=== PATIENT | female | born 1940 | race Caucasian/White ===

== ENCOUNTER 2019-07-04 04:22 | Inpatient (IN) | payer MEDICARE, OTHER ==
[~2019-07-04] VITALS: Ht 152.4 cm; Wt 95.2 kg
[~2019-07-04 04:22] MED LIST: ASPI325EC PO; LIPITOR; METF500C; METF850; OMEP20ER PO; SERT100; VALS80
[2019-07-04 04:47] LABS: BASOPHILS ABSOLUTE AUTO 0.01 K/mm3 (0.00-0.23); BASOPHILS PERCENT AUTO 0 % (0-2); EOSINOPHILS ABSOLUTE AUTO 0.14 K/mm3 (0.00-0.68); EOSINOPHILS PERCENT AUTO 2 % (0-6); Hemoglobin 11.3 g/dL (11.5-16.0); IMMATURE GRAN ABSOLUTE AUTO 0.03 K/mm3 (0.00-0.10); IMMATURE GRAN PERCENT AUTO 0 % (0-1); LYMPHOCYTES ABSOLUTE AUTO 1.97 K/mm3 (0.84-5.20); LYMPHOCYTES PERCENT AUTO 28 % (21-46); MONOCYTES ABSOLUTE AUTO 0.42 K/mm3 (0.16-1.47); MONOCYTES PERCENT AUTO 6 % (4-13); Mean Corpuscular HGB 28.1 pg (26.0-34.0); Mean Corpuscular HGB Conc 31.4 g/dL (31.5-36.5); Mean Corpuscular Volume 90 fL (80-100); Mean Platelet Volume 9.5 fL (9.1-12.4); NEUTROPHILS ABSOLUTE AUTO 4.53 K/mm3 (1.96-9.15); NEUTROPHILS PERCENT AUTO 64 % (41-73); Platelet Count 189 K/mm3 (150-400); RDW Coefficient Variation 14.5 % (11.7-14.2); RDW Standard Deviation 47.4 fL (35.1-46.3); Red Blood Cell Count 4.02 M/mm3 (3.80-5.20)
[2019-07-04 05:10] LABS: Troponin I <0.015 ng/mL (0.000-0.040)
[2019-07-04 05:11] LABS: Alanine Aminotransfer (ALT/SGP 78 U/L (12-78); Albumin, Blood 2.9 g/dL (3.4-5.0); Albumin/Globulin Ratio 0.8 (0.8-1.8); Alk Phos 499 U/L (50-136); Anion Gap 4 mmol/L (6-16); Aspartate Aminotrans (AST/SGOT 477 U/L (12-37); Bilirubin, Total 1.1 mg/dL (0.1-1.0); Blood Urea Nitrogen 16 mg/dL (8-24); CO2, Blood 30 mmol/L (21-32); Calcium, Blood 8.1 mg/dL (8.5-10.1); Chloride, Blood 108 mmol/L (98-108); Creatinine, Blood 0.84 mg/dL (0.40-1.00); Globulin, Blood 3.6 g/dL (2.2-4.0); Glomerular Filtration Rate >60 (60-); Glucose, Blood 72 mg/dL (70-99); Potassium, Blood 4.1 mmol/L (3.5-5.5); Sodium, Blood 142 mmol/L (136-145); Total Protein, Blood 6.5 g/dL (6.4-8.2)
[2019-07-04] MEDS ORDERED: Zithromax250 MG PO (05:48)
[2019-07-04] MEDS ORDERED: OXYC10TA19 PO (11:38)
[2019-07-04] MEDS ORDERED: BASAGLAR K100 UNIT/1 SC (11:39)
[2019-07-04] MEDS ORDERED: BUPROPION XL150 M1 PO (11:39)
[2019-07-04] MEDS ORDERED: METFORMIN HCL500 M2 PO (11:39)
[2019-07-04] MEDS ORDERED: NEURONTIN300 MG PO (11:40)
[2019-07-04] MEDS ORDERED: MINIPRESS2 M1 PO (11:40)
[2019-07-04] MEDS ORDERED: SYNTHROID100 MCG PO (11:40)
[2019-07-04] MEDS ORDERED: Benazepril HCl20 MG PO (11:40)
[2019-07-04] MEDS ORDERED: OMEP20ER PO (11:41)
[2019-07-04] MEDS ORDERED: Carbidopa-Levo1 EAC4 PO ×2 (11:41)
[2019-07-04] MEDS ORDERED: ATORVASTATIN CA20 MG PO (11:41)
[2019-07-04 11:49] LABS: Adenovirus Not Detected (NOT DETECT); Bordetella pertussis Not Detected (NOT DETECT); Chlamydophila pneumoniae Not Detected (NOT DETECT); Coronavirus 229E Not Detected (NOT DETECT); Coronavirus HKU1 Not Detected (NOT DETECT); Coronavirus NL63 Not Detected (NOT DETECT); Coronavirus OC43 Not Detected (NOT DETECT); Human Metapneumovirus Not Detected (NOT DETECT); Human Rhinovirus/Enterovirus Not Detected (NOT DETECT); Influenza A/2009-H1 Detected (NOT DETECT); Influenza A/H1 Not Detected (NOT DETECT); Influenza A/H3 Not Detected (NOT DETECT); Influenza B Not Detected (NOT DETECT); Mycoplasma pneumoniae Not Detected (NOT DETECT); Parainfluenza Virus 1 Not Detected (NOT DETECT); Parainfluenza Virus 2 Not Detected (NOT DETECT); Parainfluenza Virus 3 Not Detected (NOT DETECT); Parainfluenza Virus 4 Not Detected (NOT DETECT); Respiratory Syncytial Virus Not Detected (NOT DETECT)
--- NOTE | 2019-07-04 17:44 | NUR ---
SHIFT SUMMARY PT ALERT AND ORIENTED. VS STABLE. O2 SATS REMAIN ABOVE 90% ON 3L NC. BP STABLE. HR NSR. PT REMAINS AFEBRILE SINCE ADMISSION. PT INCONTINENT OF BLADDER AND ATTENDS IN PLACE. PT REPOSITIONED Q2H AND NEEDED. PT DENIES CP, BUT COMPLAINS OF REFLUX. DR. DENTON CALLED AND NOTIFIED OF REFLUX. PT ABLE TO ADVANCE DIET THIS EVENING TO CLEAR LIQUIDS. PT'S DAUGHTER CALLED AND UPDATED ON CONDITION. WILL CONTINUE TO MONITOR AND REPORT TO ONCOMING RN. CALL LIGHT IN REACH.
[2019-07-05 04:31] LABS: BASOPHILS ABSOLUTE AUTO 0.02 K/mm3 (0.00-0.23); BASOPHILS PERCENT AUTO 0 % (0-2); EOSINOPHILS ABSOLUTE AUTO 0.07 K/mm3 (0.00-0.68); EOSINOPHILS PERCENT AUTO 1 % (0-6); Hematocrit 31.9 % (33.0-51.0); Hemoglobin 9.8 g/dL (11.5-16.0); IMMATURE GRAN ABSOLUTE AUTO 0.02 K/mm3 (0.00-0.10); IMMATURE GRAN PERCENT AUTO 0 % (0-1); LYMPHOCYTES ABSOLUTE AUTO 1.32 K/mm3 (0.84-5.20); LYMPHOCYTES PERCENT AUTO 20 % (21-46); MONOCYTES ABSOLUTE AUTO 0.37 K/mm3 (0.16-1.47); MONOCYTES PERCENT AUTO 6 % (4-13); Mean Corpuscular HGB 27.7 pg (26.0-34.0); Mean Corpuscular HGB Conc 30.7 g/dL (31.5-36.5); Mean Corpuscular Volume 90 fL (80-100); NEUTROPHILS ABSOLUTE AUTO 4.93 K/mm3 (1.96-9.15); NEUTROPHILS PERCENT AUTO 73 % (41-73); Platelet Count 162 K/mm3 (150-400); RDW Coefficient Variation 14.7 % (11.7-14.2); RDW Standard Deviation 48.8 fL (35.1-46.3); Red Blood Cell Count 3.54 M/mm3 (3.80-5.20); White Blood Cell Count 6.73 K/mm3 (4.00-11.30)
[2019-07-05 04:57] LABS: Alanine Aminotransfer (ALT/SGP 418 U/L (12-78); Albumin, Blood 2.6 g/dL (3.4-5.0); Albumin/Globulin Ratio 0.8 (0.8-1.8); Alk Phos 507 U/L (50-136); Anion Gap 7 mmol/L (6-16); Aspartate Aminotrans (AST/SGOT 817 U/L (12-37); Bilirubin, Total 1.9 mg/dL (0.1-1.0); Blood Urea Nitrogen 12 mg/dL (8-24); Bun/Creatinine Ratio 14.9 (12.0-20.0); CO2, Blood 25 mmol/L (21-32); Calcium, Blood 7.8 mg/dL (8.5-10.1); Chloride, Blood 108 mmol/L (98-108); Globulin, Blood 3.2 g/dL (2.2-4.0); Glomerular Filtration Rate >60 (60-); Glucose, Blood 104 mg/dL (70-99); Potassium, Blood 3.7 mmol/L (3.5-5.5); Sodium, Blood 140 mmol/L (136-145); Total Protein, Blood 5.8 g/dL (6.4-8.2); Troponin I <0.015 ng/mL (0.000-0.040)
--- NOTE | 2019-07-05 08:01 | NUR ---
SHIFT SUMMARY NO ACUTE CHANGES NOTED THROUGH THE NIGHT. PT REMAINS A&O X3, VSS, 3 L VIA NC, O2 SATS >94%. LUNGS DIMINISHED W/EXP WHEEZES. PT DENIES SOB. IV FENT GIVEN X 1 PER EMAR PER PT REQUEST. PT IS TOLERATING CLEAR FLUIDS, NO C/O NAUSEA OR ABD PAIN. VOIDING WNL. ATTENDS CHANGED PRN, CALL LIGHT IN REACH. BED ALARM FOR SAFETY. REPORT GIVEN TO DAY RN.
--- NOTE | 2019-07-05 11:17 | NUR ---
PT CURRENTLY IN THE DRAW OPERATOR FOR PROCEDURE, PT REMAINED NPO, HEPARIN INFUSION STOPPED @8:30A. MEDS GIVEN THIS AM WITH NO ISSUES.
--- NOTE | 2019-07-05 19:41 | NUR ---
SHIFT SUMMARY: PT ALERT AND ORIENTED PER BASELINE, PT C/O NAUSEA X1 ZOFRAN GIVEN AND EFFECTIVE. PT BP SYSTOLIC ELEVATED TO 180'S-190'S EVEN AFTER HYDRALAZINE IV X 1, DR HERNANDEZ MADE AWARE, ORDER RECEIVED FOR LOBETALOL IV GIVEN WELL PROOF PASSER NURSE TO FOLLOW UP WITH BP. PT CONTINUES ON IV ABO, STILL ON DROPLET PREC FOR INFLUENZA A, HAS NOT RECIEVED RESULT BACK FOR COVID 19. PT STILL ON CLEAR LIQUID DIET WELL, ABD MRI ORDERED STAT TODAY, VENDING MANAGER WAS ONLY HERE TIL 3PM ORDER RECEIVED AFTER 3PM. DR HERNANDEZ MADE AWARE OKAY TO DO PROCEDURE FIRST THING IN THE AM. PT HAS BEEN COOPERATIVE FOR THE SHIFT, ABLE TO MAKE NEEDS KNOWN, REPORT GIVEN TO ONCOMING SHIFT
[2019-07-06 03:37] LABS: BASOPHILS ABSOLUTE AUTO 0.03 K/mm3 (0.00-0.23); BASOPHILS PERCENT AUTO 0 % (0-2); EOSINOPHILS ABSOLUTE AUTO 0.14 K/mm3 (0.00-0.68); EOSINOPHILS PERCENT AUTO 2 % (0-6); Hematocrit 33.2 % (33.0-51.0); Hemoglobin 10.5 g/dL (11.5-16.0); IMMATURE GRAN ABSOLUTE AUTO 0.04 K/mm3 (0.00-0.10); IMMATURE GRAN PERCENT AUTO 1 % (0-1); LYMPHOCYTES ABSOLUTE AUTO 1.22 K/mm3 (0.84-5.20); LYMPHOCYTES PERCENT AUTO 18 % (21-46); MONOCYTES ABSOLUTE AUTO 0.39 K/mm3 (0.16-1.47); MONOCYTES PERCENT AUTO 6 % (4-13); Mean Corpuscular HGB 27.6 pg (26.0-34.0); Mean Corpuscular HGB Conc 31.6 g/dL (31.5-36.5); Mean Platelet Volume 9.8 fL (9.1-12.4); NEUTROPHILS ABSOLUTE AUTO 5.13 K/mm3 (1.96-9.15); NEUTROPHILS PERCENT AUTO 74 % (41-73); Platelet Count 191 K/mm3 (150-400); RDW Coefficient Variation 14.8 % (11.7-14.2); RDW Standard Deviation 47.3 fL (35.1-46.3); White Blood Cell Count 6.95 K/mm3 (4.00-11.30)
[2019-07-06 03:38] LABS: Mean Corpuscular Volume 87 fL (80-100)
[2019-07-06 03:55] LABS: Alanine Aminotransfer (ALT/SGP 408 U/L (12-78); Albumin, Blood 2.7 g/dL (3.4-5.0); Albumin/Globulin Ratio 0.8 (0.8-1.8); Alk Phos 474 U/L (50-136); Anion Gap 7 mmol/L (6-16); Aspartate Aminotrans (AST/SGOT 306 U/L (12-37); Bilirubin, Total 0.7 mg/dL (0.1-1.0); Blood Urea Nitrogen 8 mg/dL (8-24); Bun/Creatinine Ratio 11.2 (12.0-20.0); CO2, Blood 27 mmol/L (21-32); Calcium, Blood 8.2 mg/dL (8.5-10.1); Chloride, Blood 109 mmol/L (98-108); Creatinine, Blood 0.72 mg/dL (0.40-1.00); Globulin, Blood 3.6 g/dL (2.2-4.0); Glomerular Filtration Rate >60 (60-); Glucose, Blood 103 mg/dL (70-99); Magnesium, Blood 1.6 mg/dL (1.6-2.4); Potassium, Blood 3.5 mmol/L (3.5-5.5); Sodium, Blood 143 mmol/L (136-145); Total Protein, Blood 6.3 g/dL (6.4-8.2)
--- NOTE | 2019-07-06 09:21 | NUR ---
SUMMARY NO ACUTE CHANGES NOTED THROUGH THE NIGHT. PT CHOSE TO TAKE HER AMBIEN BEFORE BEDTIME AND SHE WAS ABLE TO SLEEP WITH NO PROBLEMS. SHE STATES SHE FEELS MUCH BETTER THIS AM.IV HYDRALIZINE WAS GIVEN X 1. BP IS BETTER THIS AM. ATTENDS CHANGED PRN. PT REMAINS ON 2 L NC. REPORT GIVEN TO DAY RN.
--- NOTE | 2019-07-06 11:53 | NUR ---
Leilani; care visit conducted. Patient is lying in bed and asleep. Patient barely awakens to the sound of her name and can't maintain alertness long enough for much conversation. I provide prayer for patient. Patient voices appreciation and is snoring before I am out of the PPE.
--- NOTE | 2019-07-06 12:41 | NUR ---
The pt is crying, saying that she is afraid of closed spaces and worried and very afraid about the MRI. AFter discussing with Aurora toth RN, I called and she said that she would put in a one time order for anxiety meds for the MRI.
--- NOTE | 2019-07-06 18:17 | NUR ---
SHIFT SUMMARY PT A&Ox4; CALM AND COOPERATIVE [facility] CARE. PT RESTING IN BED DURING SHIFT. PT REPORTS SHOULDER AND BACK PAIN; REPOSITION FOR COMFORT; PT DENIES NEED FOR MEDICATIONS. PT SOB WITH EXERTION; PT STARTED THIS SHIFT ON 2L O2 VIA NC, TITRATED TO RA DURING SHIFT. PT DENIES NAUSEA; REPORTS HAVING LOW APPETITE. PT PT DENIES CHEST PAIN/PRESSURE AND DIZZINES. PT RECEIVING IV ANTIBIOTICS AND PO TAMIFLU. ELEVATED BP NOTED; MEDICATED WITH SCHEDULE MEDICATIONS AND 1x PRN HYDRALAZINE WITH POSITIVE RESULTS. ABD MRI COMPLETED THIS AFTERNOON; MEDICATED WITH ATIVAN FOR ANXIETY PRIOR TO LEAVING FOR IMAGING. OTHER VSS. NO OTHER ACUTE CHANGES NOTED DURING SHIFT. WILL CONTINUE TO MONITOR UNITL REPORT GIVEN TO ONCOMING RN.
[2019-07-07 04:22] LABS: BASOPHILS ABSOLUTE AUTO 0.03 K/mm3 (0.00-0.23); BASOPHILS PERCENT AUTO 0 % (0-2); EOSINOPHILS ABSOLUTE AUTO 0.23 K/mm3 (0.00-0.68); EOSINOPHILS PERCENT AUTO 3 % (0-6); Hematocrit 33.5 % (33.0-51.0); Hemoglobin 10.5 g/dL (11.5-16.0); IMMATURE GRAN ABSOLUTE AUTO 0.04 K/mm3 (0.00-0.10); IMMATURE GRAN PERCENT AUTO 1 % (0-1); LYMPHOCYTES ABSOLUTE AUTO 1.72 K/mm3 (0.84-5.20); LYMPHOCYTES PERCENT AUTO 26 % (21-46); MONOCYTES ABSOLUTE AUTO 0.43 K/mm3 (0.16-1.47); MONOCYTES PERCENT AUTO 6 % (4-13); Mean Corpuscular HGB 27.4 pg (26.0-34.0); Mean Corpuscular HGB Conc 31.3 g/dL (31.5-36.5); Mean Corpuscular Volume 88 fL (80-100); Mean Platelet Volume 9.8 fL (9.1-12.4); NEUTROPHILS ABSOLUTE AUTO 4.28 K/mm3 (1.96-9.15); NEUTROPHILS PERCENT AUTO 64 % (41-73); Platelet Count 210 K/mm3 (150-400); RDW Coefficient Variation 14.5 % (11.7-14.2); RDW Standard Deviation 46.5 fL (35.1-46.3); Red Blood Cell Count 3.83 M/mm3 (3.80-5.20); White Blood Cell Count 6.73 K/mm3 (4.00-11.30)
[2019-07-07 04:38] LABS: Alanine Aminotransfer (ALT/SGP 294 U/L (12-78); Albumin, Blood 2.6 g/dL (3.4-5.0); Albumin/Globulin Ratio 0.7 (0.8-1.8); Alk Phos 388 U/L (50-136); Anion Gap 6 mmol/L (6-16); Aspartate Aminotrans (AST/SGOT 85 U/L (12-37); Bilirubin, Total 0.5 mg/dL (0.1-1.0); Blood Urea Nitrogen 7 mg/dL (8-24); Bun/Creatinine Ratio 9.5 (12.0-20.0); CO2, Blood 28 mmol/L (21-32); Chloride, Blood 107 mmol/L (98-108); Creatinine, Blood 0.74 mg/dL (0.40-1.00); Globulin, Blood 3.5 g/dL (2.2-4.0); Glomerular Filtration Rate >60 (60-); Glucose, Blood 113 mg/dL (70-99); Magnesium, Blood 1.7 mg/dL (1.6-2.4); Potassium, Blood 3.2 mmol/L (3.5-5.5); Sodium, Blood 141 mmol/L (136-145); Total Protein, Blood 6.1 g/dL (6.4-8.2)
--- NOTE | 2019-07-07 05:04 | NUR ---
SHIFT SUMMARY PATIENT SLEPT WELL THROUGH NIGHT AFTER RECEIVING PRN AMBIEN. GOT UP ONCE WITH MAXIMUM ASSIST X2 PEOPLE AND GAIT BELT, WILL ASK FOR PHYSICAL THERAPY CONSULT IF NOT ALREADY PLACED. NO C/O PAIN. VSS. ASSESSMENT IS CHARTED. WILL CONTINUE TO MONITOR.
--- NOTE | 2019-07-07 14:00 | NUR ---
ARRIVAL TO UNIT PT IN BED. EXP WHEEZES NOTED. PT INSTRUCTED ON BENEFITS OF COUGHING. MOIST NONPRODUCTIVE COUGH. 98% ON RA. PT VERY ANXIOUS, ASKING REPEATATIVE QUESTIONS. ASKING IF SHE IS GOING TO . TALKED WITH PT AND ANSWERED QUESTIONS. REPORTS FEELING BETTER. SCAB NOTED TO Mary CHAVES. PT REPORTS FALLING SEVERAL TIMES IN LAST 2 WEEKS. SCATTERED BRUISING T/O LEGS.
--- NOTE | 2019-07-07 14:19 | NUR ---
TRANSFER NOTE TELEPHONE REPORT GIVEN TO ROSETTA FISCHER ASSUMING CARE OF PATIEINT. PT A&Ox4; ANXIOUS BUT COOPERATIVE WITH CARE. PT RESTING IN BED DURING SHIFT; UP TO BSC WITH 1 PERSON ASSIST. PT REPORTS CHRONIC SHOULDER AND BACK PAIN AND RUQ PAIN ON PALPITATION. PT DENIES SOB; TITRATED TO RA THIS AFTERNOON. PT REPORTS DIZZINESS WITH AMBULATION. PT REPORTING NAUSEA THIS AFTERNOON, MEDCIATED x1 WITH ZOFRAN. DR PINEDA AT BEDSIDE DURING SHIFT; PLANS FOR PROCEDUER TOMORROW; NPO AFTER 0400. VSS. NO OTHER ACUTE CHANGES NOTE; PT TRANSFERED TO ROOM 232 AT APPROX 1350.
--- NOTE | 2019-07-07 18:31 | NUR ---
SHIFT SUMMARY PT HAS BATTLED WITH HTN AND ANXIETY SINCE TRANSFER. PT PLACED BACK ON TELE AND LABETALOL GIVEN WITH POSITIVE RESULTS. NO RESULTS WITH HYDRALAZINE.
--- NOTE | 2019-07-08 07:10 | NUR ---
RECVD REPORT FROM PREVIOUS SHIFT RN NAWAF, PT AWAKE IN BED, A/O X 4, PLEASANT/COOPERATIVE. PT HAS CALL LIGHT WITHIN REAC, BED IN LOWEST POSITION, BED RAILS UP X 2
--- NOTE | 2019-07-08 07:31 | NUR ---
SUMMARY PT IRRITABLE AT TIMES TONIGHT WANTING TO BE LEFT TO SLEEP.DISCUSSED IMPORTANCE AND RISKS. PT PREOP FOR TODAY.REMAINS NPO.IV AT TKO. PAS PUMPS PLACED TONIGHT. DID NOT REQUIRE ANY PRN BP MEDS. TELE REMAINS INPLACE.
--- NOTE | 2019-07-08 10:00 | NUR ---
dr duarte rounding on pt
--- NOTE | 2019-07-08 13:58 | NUR ---
notified by OR staff that pt's procedure will be pushed to tomorrow, notifed pt's daughter. Will resume PO intake until midnight tonight.
[2019-07-08 13:59] LABS: Alanine Aminotransfer (ALT/SGP 179 U/L (12-78); Albumin, Blood 2.6 g/dL (3.4-5.0); Albumin/Globulin Ratio 0.7 (0.8-1.8); Alk Phos 326 U/L (50-136); Anion Gap 7 mmol/L (6-16); Aspartate Aminotrans (AST/SGOT 44 U/L (12-37); Bilirubin, Total 0.3 mg/dL (0.1-1.0); Blood Urea Nitrogen 5 mg/dL (8-24); Bun/Creatinine Ratio 6.8 (12.0-20.0); CO2, Blood 26 mmol/L (21-32); Calcium, Blood 7.9 mg/dL (8.5-10.1); Chloride, Blood 109 mmol/L (98-108); Creatinine, Blood 0.74 mg/dL (0.40-1.00); Globulin, Blood 3.5 g/dL (2.2-4.0); Glomerular Filtration Rate >60 (60-); Glucose, Blood 112 mg/dL (70-99); Potassium, Blood 3.4 mmol/L (3.5-5.5); Sodium, Blood 142 mmol/L (136-145); Total Protein, Blood 6.1 g/dL (6.4-8.2)
--- NOTE | 2019-07-08 15:30 | NUR ---
DR PINEDA ROUNDED ON PT
--- NOTE | 2019-07-08 18:09 | NUR ---
shift summary: vs remain consistent with elevated SPB between 160-190, medicated per mar. pt remains oriented to self and family, follows directions, bed alarm on. pt reorients easily, is confused per baseline r/t Parkinson's hx. pt became nauseous afternoon hours, no vomiting, medicated per jun. Surgical intervention for choleycystits postpone until tomorrow, 07/09/19. pt tolerated sips of clear liquids following postponement of surgery. pt worked with PT/OT this shift, service planner to see pt today. PT with BM x 1, incontinent with attends in place.
[2019-07-09 04:59] LABS: BASOPHILS ABSOLUTE AUTO 0.05 K/mm3 (0.00-0.23); BASOPHILS PERCENT AUTO 1 % (0-2); EOSINOPHILS ABSOLUTE AUTO 0.31 K/mm3 (0.00-0.68); EOSINOPHILS PERCENT AUTO 5 % (0-6); Hematocrit 34.9 % (33.0-51.0); IMMATURE GRAN ABSOLUTE AUTO 0.08 K/mm3 (0.00-0.10); IMMATURE GRAN PERCENT AUTO 1 % (0-1); LYMPHOCYTES ABSOLUTE AUTO 2.37 K/mm3 (0.84-5.20); LYMPHOCYTES PERCENT AUTO 35 % (21-46); MONOCYTES ABSOLUTE AUTO 0.46 K/mm3 (0.16-1.47); MONOCYTES PERCENT AUTO 7 % (4-13); Mean Corpuscular HGB 27.6 pg (26.0-34.0); Mean Corpuscular HGB Conc 31.5 g/dL (31.5-36.5); Mean Corpuscular Volume 88 fL (80-100); Mean Platelet Volume 9.4 fL (9.1-12.4); NEUTROPHILS ABSOLUTE AUTO 3.42 K/mm3 (1.96-9.15); NEUTROPHILS PERCENT AUTO 51 % (41-73); Platelet Count 258 K/mm3 (150-400); RDW Coefficient Variation 14.5 % (11.7-14.2); RDW Standard Deviation 46.6 fL (35.1-46.3); Red Blood Cell Count 3.98 M/mm3 (3.80-5.20); White Blood Cell Count 6.69 K/mm3 (4.00-11.30)
--- NOTE | 2019-07-09 05:01 | NUR ---
SUMMARY PT CLEANSED WITH CHLORHEX FOR OR TODAY.REPORTS SLEPT WELL TONIGHT.NPO PREOP.
[2019-07-09 05:12] LABS: Alanine Aminotransfer (ALT/SGP 156 U/L (12-78); Albumin, Blood 2.7 g/dL (3.4-5.0); Albumin/Globulin Ratio 0.8 (0.8-1.8); Alk Phos 301 U/L (50-136); Anion Gap 7 mmol/L (6-16); Aspartate Aminotrans (AST/SGOT 56 U/L (12-37); Bilirubin, Total 0.4 mg/dL (0.1-1.0); Blood Urea Nitrogen 5 mg/dL (8-24); Bun/Creatinine Ratio 6.7 (12.0-20.0); CO2, Blood 27 mmol/L (21-32); Calcium, Blood 7.9 mg/dL (8.5-10.1); Chloride, Blood 109 mmol/L (98-108); Creatinine, Blood 0.74 mg/dL (0.40-1.00); Globulin, Blood 3.4 g/dL (2.2-4.0); Glomerular Filtration Rate >60 (60-); Glucose, Blood 109 mg/dL (70-99); Potassium, Blood 3.2 mmol/L (3.5-5.5); Sodium, Blood 143 mmol/L (136-145); Total Protein, Blood 6.1 g/dL (6.4-8.2)
--- NOTE | 2019-07-09 07:05 | NUR ---
recvd report from previous shift rn malathi, pt asleep in bed, bed in lowest position, call light within reach, bed rails up x 2, pt in contact isolation for H1N1, mask dispensed for this shift.
--- NOTE | 2019-07-09 10:41 | NUR ---
daysurgery RN Magaly transporting pt to OR prep
--- NOTE | 2019-07-09 10:43 | NUR ---
History, Chart, Medications and Allergies reviewed before start of procedure. Patient confirms NPO status and agrees with scheduled surgery.
--- NOTE | 2019-07-09 12:02 | NUR ---
07/09/19 1202 Jo Domingo PT ON SCHEDULED ANTIBIOTICS AND RECIEVED PRIOR TO ARRIVAL TO OR.
--- NOTE | 2019-07-09 13:45 | NUR ---
pt transferred back to room via stretcher, a/o x 3 to baseline, post op vs commenced, bed in lowest position, bed rails up x 2, call light within reach
--- NOTE | 2019-07-09 15:00 | NUR ---
pt's sbp remaining >170 despite PO daily meds and PRN IV agents per jun. Dr Roe notified, awaiting orders
--- NOTE | 2019-07-09 15:29 | NUR ---
dr whitney rounding on pt
--- NOTE | 2019-07-09 19:34 | NUR ---
shift summary: vs remain consistent, NSR 70-100, SBP elevated, provider notifed and orders received, will continue to monitor per orders. Post op vs complete, pt a/o to her baseline, forgetful and calls often, reorients to sitaution and forgets a short time after. pt tolerating PO intake with no n/v, tolerated PO analgesia. Labs continue to improve r/t flu illness. pt worked with physical therapy, up in chair prior to surgical intervention. Lap incisions x 4 abd remain c/d/i, dried drainage. pt's daughter notified following procedure by doctor. hospitalist spoke with daughter regarding pt's home medications and orders updated.
[2019-07-10 04:29] LABS: BASOPHILS ABSOLUTE AUTO 0.05 K/mm3 (0.00-0.23); BASOPHILS PERCENT AUTO 1 % (0-2); EOSINOPHILS ABSOLUTE AUTO 0.16 K/mm3 (0.00-0.68); EOSINOPHILS PERCENT AUTO 2 % (0-6); Hematocrit 33.1 % (33.0-51.0); Hemoglobin 10.6 g/dL (11.5-16.0); IMMATURE GRAN ABSOLUTE AUTO 0.15 K/mm3 (0.00-0.10); IMMATURE GRAN PERCENT AUTO 2 % (0-1); LYMPHOCYTES ABSOLUTE AUTO 2.66 K/mm3 (0.84-5.20); LYMPHOCYTES PERCENT AUTO 28 % (21-46); MONOCYTES ABSOLUTE AUTO 0.68 K/mm3 (0.16-1.47); MONOCYTES PERCENT AUTO 7 % (4-13); Mean Corpuscular HGB 28.2 pg (26.0-34.0); Mean Corpuscular Volume 88 fL (80-100); Mean Platelet Volume 9.8 fL (9.1-12.4); NEUTROPHILS ABSOLUTE AUTO 5.99 K/mm3 (1.96-9.15); NEUTROPHILS PERCENT AUTO 62 % (41-73); Platelet Count 278 K/mm3 (150-400); RDW Coefficient Variation 14.5 % (11.7-14.2); RDW Standard Deviation 46.7 fL (35.1-46.3); Red Blood Cell Count 3.76 M/mm3 (3.80-5.20); White Blood Cell Count 9.69 K/mm3 (4.00-11.30)
[2019-07-10 04:50] LABS: Alanine Aminotransfer (ALT/SGP 21 U/L (12-78); Albumin, Blood 2.6 g/dL (3.4-5.0); Albumin/Globulin Ratio 0.8 (0.8-1.8); Alk Phos 255 U/L (50-136); Anion Gap 6 mmol/L (6-16); Aspartate Aminotrans (AST/SGOT 46 U/L (12-37); Bilirubin, Total 0.5 mg/dL (0.1-1.0); Blood Urea Nitrogen 9 mg/dL (8-24); CO2, Blood 28 mmol/L (21-32); Chloride, Blood 107 mmol/L (98-108); Creatinine, Blood 0.82 mg/dL (0.40-1.00); Globulin, Blood 3.1 g/dL (2.2-4.0); Glomerular Filtration Rate >60 (60-); Glucose, Blood 97 mg/dL (70-99); Potassium, Blood 3.2 mmol/L (3.5-5.5); Sodium, Blood 141 mmol/L (136-145); Total Protein, Blood 5.7 g/dL (6.4-8.2)
--- NOTE | 2019-07-10 06:42 | NUR ---
SHIFT SUMMARY: JOSSY IS ALERT AND ORIENTED TO PERSON, PLACE, AND SITUATION. SHE ANSWERS QUESTIONS APPROPRIATELY AND FOLLOWS DIRECTIONS. SHE IS INCONTINENT, ATTENDS IN PLACE. STERI STRIPS X 4 ON ABDOMEN INTACT, UMBILICAL DRESSING WITH SCANT DRAINAGE. TOLERATING PO INTAKE WELL. BED ALARM ON FOR SAFETY. IV TO L AC PATENT. SHE USES HER CALL LIGHT APPROPRIATELY. SHE IS LYING IN BED WITH HER CALL LIGHT IN REACH. WILL REPORT TO DAY SHIFT RN.
[2019-07-10] MEDS ORDERED: SERT100 PO (13:44)
[2019-07-10] MEDS ORDERED: AMLO5 PO (13:44)
[2019-07-10] MEDS ORDERED: HYDCHL25 PO (13:44)
[2019-07-10] MEDS ORDERED: POTA10T PO (13:45)
--- NOTE | 2019-07-10 13:49 | NUR ---
DISCHARGE FAMILY NOTIFIED OF PT DISCHARGING HOME. FAMILY VERBALIZED THEY WOULD COME PICK HER UP SHORTLY. PRINTED DISCHARGE INSTRUCTIONS BEING SENT WITH PT. RX SENT OVER TO [facility] PER FAMILY REQUEST. IV DC'D. GATHERING ALL OF PERSONAL BELONGINGS. WILL ESCORT PT OUT VIA W/C WHEN FAMILY ARRIVES.
--- NOTE | 2019-07-10 14:29 | NUR ---
PT ESCORTED OUT TO VEHICLE. GAVE DAUGHTER DISCHARGE INSTRUCTIONS AND [facility] DAUGHTER VERBALIZED AN UNDERSTANDING. ALL PERSONAL BELONGINGS SENT WITH PT.
== END 2019-07-10 14:30 | disposition home or self-care (01) | DRG 854 ==
LOC: ER 04:22 → PCU 09:13 → SURS 09:13 → ERHOLD 09:13 → PCU 12:02 → SURS 07-07 14:32
PROVIDERS: Emergency Medicine; Internal Medicine; Surgery; ADMIT Internal Medicine
PROC: 0FT44ZZ Resection of Gallbladder, Percutaneous Endoscopic Approach (ICD-10-PCS; principal; 2019-07-09 11:15)
DX: A41.51 Sepsis due to Escherichia coli [E. coli] (principal); K80.00 Calculus of gallbladder with acute cholecystitis without obstruction; J98.11 Atelectasis; R65.20 Severe sepsis without septic shock; F03.90 Unspecified dementia, unspecified severity, without behavioral disturbance, psychotic disturbance, mood disturbance, and anxiety; J10.1 Influenza due to other identified influenza virus with other respiratory manifestations; G89.4 Chronic pain syndrome; G20 Parkinson's disease; I10 Essential (primary) hypertension; E03.9 Hypothyroidism, unspecified; F32.9 Major depressive disorder, single episode, unspecified; E78.5 Hyperlipidemia, unspecified; K21.9 Gastro-esophageal reflux disease without esophagitis; I25.2 Old myocardial infarction; Z88.0 Allergy status to penicillin; Z88.2 Allergy status to sulfonamides
CPT/HCPCS: 0099U; 36415; 71045; 74176; 74181; 74300; 76705; 80053; 82947; 83605; 83690; 83735; 84145; 84484; 85025; 87040; 87077; 87186; 88304; 93005; 93010; 94640; 94760; 94762; 96361; 96365; 96366; 96367; 96375; 97110; 97162; 97166; 97530; 97535; 99285-25; A9270; A9270-GY; C1729; J0330; J0360; J0456; J0696; J1100; J1644; J1885; J2060; J2370; J2405; J2704; J2710; J2765; J3010; J7030; J7050; J7060; J7120; U0002

== ENCOUNTER 2020-08-23 19:18 | Inpatient (IN) | payer MEDICARE, OTHER ==
[~2020-08-23] VITALS: Ht 160 cm; Wt 77.8 kg
[~2020-08-23 19:18] MED LIST changes: +AMLO5 PO; -ASPI325EC PO; +ATORVASTATIN CA20 MG PO; +BASAGLAR K100 UNIT/1 SC; +BUPROPION XL150 M1 PO; +Benazepril HCl10 MG PO; +CARBIDOPA-LEVO1 EA17 PO; +COLACE100 MG PO; +Carbidopa-Levo1 EAC4 PO; +HYDCHL25 PO; +LOW DOSE ASPIRI81 MG PO; +METFORMIN HCL500 M2 PO; +MINIPRESS2 M1 PO; +NEURONTIN300 MG PO; +OXYC10TA19 PO; +POTA10T PO; +SERTRALINE HCL50 MG PO; +SYNTHROID100 MCG PO; +Zithromax250 MG PO
[2020-08-23 19:59] LABS: BASOPHILS ABSOLUTE AUTO 0.06 K/mm3 (0.00-0.23); BASOPHILS PERCENT AUTO 0 % (0-2); EOSINOPHILS ABSOLUTE AUTO 0.01 K/mm3 (0.00-0.68); EOSINOPHILS PERCENT AUTO 0 % (0-6); Hemoglobin 13.1 g/dL (11.5-16.0); IMMATURE GRAN ABSOLUTE AUTO 0.09 K/mm3 (0.00-0.10); IMMATURE GRAN PERCENT AUTO 1 % (0-1); LYMPHOCYTES ABSOLUTE AUTO 2.15 K/mm3 (0.84-5.20); LYMPHOCYTES PERCENT AUTO 16 % (21-46); MONOCYTES ABSOLUTE AUTO 0.42 K/mm3 (0.16-1.47); MONOCYTES PERCENT AUTO 3 % (4-13); Mean Corpuscular HGB Conc 32.8 g/dL (31.5-36.5); Mean Corpuscular Volume 89 fL (80-100); Mean Platelet Volume 10.3 fL (9.1-12.4); NEUTROPHILS PERCENT AUTO 80 % (41-73); Platelet Count 343 K/mm3 (150-400); RDW Standard Deviation 42.5 fL (35.1-46.3); Red Blood Cell Count 4.52 M/mm3 (3.80-5.20); White Blood Cell Count 13.43 K/mm3 (4.00-11.30)
[2020-08-23 20:34] LABS: Alanine Aminotransfer (ALT/SGP 7 U/L (12-78); Albumin, Blood 3.4 g/dL (3.4-5.0); Albumin/Globulin Ratio 0.8 (0.8-1.8); Alk Phos 156 U/L (50-136); Anion Gap 9 mmol/L (6-16); Aspartate Aminotrans (AST/SGOT 10 U/L (12-37); Bilirubin, Total 0.6 mg/dL (0.1-1.0); Blood Urea Nitrogen 14 mg/dL (8-24); Bun/Creatinine Ratio 16.6 (12.0-20.0); CO2, Blood 26 mmol/L (21-32); Calcium, Blood 8.9 mg/dL (8.5-10.1); Chloride, Blood 100 mmol/L (98-108); Creatinine, Blood 0.85 mg/dL (0.40-1.00); Globulin, Blood 4.3 g/dL (2.2-4.0); Glomerular Filtration Rate >60 (60-); Glucose, Blood 135 mg/dL (70-99); Potassium, Blood 3.8 mmol/L (3.5-5.5); Sodium, Blood 135 mmol/L (136-145); Total Protein, Blood 7.7 g/dL (6.4-8.2)
[2020-08-23] MEDS ORDERED: LIDO TOP (21:28)
[2020-08-23] MEDS ORDERED: SKYADERM-LP 2.1 EACH TOP (21:28)
[2020-08-23] MEDS ORDERED: [UNRECOGNIZED DRUG - OTHER] TOP (21:28)
[2020-08-23] MEDS ORDERED: ATOR40TA PO (21:29)
[2020-08-23] MEDS ORDERED: OXYC10TA19 PO (21:29)
[2020-08-23] MEDS ORDERED: NEURONTIN300 MG PO (21:35)
[2020-08-23] MEDS ORDERED: KLOR-CON 1010 ME1 PO (21:36)
[2020-08-23] MEDS ORDERED: MINIPRESS2 MG PO (21:36)
[2020-08-23 21:40] LABS: Source, Urine Clean Catch
[2020-08-23 21:42] LABS: Blood, Urine 3+ (Neg); Glucose Qualitative, Urine Neg (Neg); Ketones, Urine 3+ (Neg); Leukocyte Esterase, Urine 2+ (Neg); Nitrite, Urine Pos (Neg); Protein, Urine 3+ (Neg); Specific Gravity, Urine 1.025 (1.003-1.022); Urobilinogen, Urine 1+ (Normal)
[2020-08-23 21:50] LABS: SARS-Cov-2 (COVID-19) PCR, MMC NEGATIVE (NEGATIVE)
[2020-08-23 21:54] LABS: Bilirubin, Urine 1+ (Neg)
[2020-08-23 21:55] LABS: Appearance, Urine Hazy (Clear); Bacteria Many /hpf; Color, Urine Amber (P-Yellow); Red Blood Cells, Urine 0-2 /hpf (0-2); Squamous Epithelial Cells Few /hpf (Few); White Blood Cells, Urine 25-50 /hpf (0-5)
[2020-08-23 21:56] LABS: Mucus Light (0-Heavy)
[2020-08-24 05:23] LABS: Hematocrit 38.1 % (33.0-51.0); Hemoglobin 12.5 g/dL (11.5-16.0); Mean Corpuscular HGB 28.8 pg (26.0-34.0); Mean Corpuscular HGB Conc 32.8 g/dL (31.5-36.5); Mean Corpuscular Volume 88 fL (80-100); Mean Platelet Volume 10.4 fL (9.1-12.4); Platelet Count 308 K/mm3 (150-400); RDW Coefficient Variation 13.2 % (11.7-14.2); RDW Standard Deviation 42.5 fL (35.1-46.3); Red Blood Cell Count 4.34 M/mm3 (3.80-5.20); White Blood Cell Count 11.75 K/mm3 (4.00-11.30)
[2020-08-24 05:59] LABS: Bun/Creatinine Ratio 19.8 (12.0-20.0); Calcium, Blood 8.5 mg/dL (8.5-10.1); Creatinine, Blood 0.96 mg/dL (0.40-1.00); Potassium, Blood 4.2 mmol/L (3.5-5.5)
[2020-08-24 06:02] LABS: Troponin I 1.52 ng/mL (0.000-0.040)
--- NOTE | 2020-08-24 07:11 | NUR ---
HEPARIN GTT INFUSING. C/P CONTROLLED BY IV FENTANYL. HR LOW 50S. X1 VOMITING. ZOFRAN GIVEN W/ GOOD RESULTS. CARDIOLOGY CONSULT PLACED PER DR LEVINE FOR CONTINUED ELEVATED TROPONIN. PT STATES SHE IS FEELING BETTER THIS AM. CALL LIGHT WITHIN REACH.
--- NOTE | 2020-08-24 08:30 | NUR ---
PT AWAKE A/OX3, FORGETFUL, COOPERATIVE WITH CARE, FOLLOWS COMMANDS WELL, DENIES C.P. BUT IS VERY NAUSIATED, AND IS VOMITING, ZOFRAN ADMINISTERED, CARDIOLOGY IN TO SEE PT, STAT ECHO ORDERED AND EKG BEING DONE, WILL BE GOING TO [facility] AT NOON, V.S. STABLE, LUNGS ARE CLEAR DIM T/O, RESP EVEN AND UNLABORED, NO COUGH NOTED, HRIRR, TELE IN PLACE RUNNING AFIB PER MONITOR, SEE STRIP, 3+ EDEMA NOTED TO B/L LE, PPP+1, IV SITE TO LEFT AC SITE IS CLEAR AND PATENT, BTX4, ABD FLAT SOFT NONTENDER, INCONT OF URINE AND STOOL ATTENDS IN PLACE, SKIN C/W/D, BUT FRAIL, JUAN DIEGO VAZQUEZ, CALL LIGHT IN REACH. WILL CONTINUE TO MONITOR, AND WILL ATTEMPT TO PLACE ANOTHER IV. CHARGE NURSE ASKED TO DO THIS HER VEINS LOOK FRAIL.
--- NOTE | 2020-08-24 09:12 | NUR ---
echocardiogram completed
--- NOTE | 2020-08-24 11:11 | NUR ---
PT LEFT FOR SLEEVE MAKER VIA BED. DAUGHTER IN TO SEE HER.
--- NOTE | 2020-08-24 12:45 | NUR ---
PT RETURNED TO ROOM, TR BAND IN PLACE, DENIES COMPLAINTS OF NUMBNESS OR TINGLING, BUT STATES HER WRSIT IS UNCOMFORTABLE. V.S. STABLE. STARTED FLUID AND ROCEPHIN ORDERED, DAUGHTER IN ROOM. CALL LIGHT IN REACH.
--- NOTE | 2020-08-24 19:13 | NUR ---
tr band was removed at 1730, hepering resumed at current rate, pharmacy notified. no acute changes. call light in reach.
--- NOTE | 2020-08-24 22:42 | NUR ---
CARE ASSUMPTION P/A X3. PT FORGETFUL AT TIMES. VSS. SPO2 >90% ON RA. TELE 80S. PT COMPLAINS OF BEING WARM. PT IS DIAPHORETIC PROVIDED A COOL WASH CLOTH AND TURNED HEATER DOWN. PT STATES THIS HELPED COOL HER OFF AND IS LESS DIAPHORETIC. PT COMPLAINS OF NAUSEOUS AND TENDER ABD. PT RECEIVED ZOFRAN PER EMAR. WILL CONTINUE TO MONITOR AND PROVIDE CARE.
[2020-08-25 05:05] LABS: BASOPHILS ABSOLUTE AUTO 0.04 K/mm3 (0.00-0.23); BASOPHILS PERCENT AUTO 0 % (0-2); EOSINOPHILS ABSOLUTE AUTO 0.01 K/mm3 (0.00-0.68); EOSINOPHILS PERCENT AUTO 0 % (0-6); Hemoglobin 11.6 g/dL (11.5-16.0); IMMATURE GRAN ABSOLUTE AUTO 0.07 K/mm3 (0.00-0.10); IMMATURE GRAN PERCENT AUTO 1 % (0-1); LYMPHOCYTES ABSOLUTE AUTO 2.35 K/mm3 (0.84-5.20); LYMPHOCYTES PERCENT AUTO 25 % (21-46); MONOCYTES ABSOLUTE AUTO 0.45 K/mm3 (0.16-1.47); MONOCYTES PERCENT AUTO 5 % (4-13); Mean Corpuscular HGB 28.5 pg (26.0-34.0); Mean Corpuscular HGB Conc 32.2 g/dL (31.5-36.5); Mean Corpuscular Volume 89 fL (80-100); Mean Platelet Volume 10.6 fL (9.1-12.4); NEUTROPHILS ABSOLUTE AUTO 6.65 K/mm3 (1.96-9.15); NEUTROPHILS PERCENT AUTO 70 % (41-73); Platelet Count 260 K/mm3 (150-400); RDW Coefficient Variation 13.4 % (11.7-14.2); RDW Standard Deviation 43.6 fL (35.1-46.3); Red Blood Cell Count 4.07 M/mm3 (3.80-5.20); White Blood Cell Count 9.57 K/mm3 (4.00-11.30)
[2020-08-25 05:29] LABS: Anion Gap 12 mmol/L (6-16); Blood Urea Nitrogen 28 mg/dL (8-24); Bun/Creatinine Ratio 30.9 (12.0-20.0); CO2, Blood 22 mmol/L (21-32); Calcium, Blood 8.3 mg/dL (8.5-10.1); Chloride, Blood 101 mmol/L (98-108); Creatinine, Blood 0.91 mg/dL (0.40-1.00); Glomerular Filtration Rate >60 (60-); Glucose, Blood 104 mg/dL (70-99); Potassium, Blood 4.1 mmol/L (3.5-5.5); Sodium, Blood 135 mmol/L (136-145)
--- NOTE | 2020-08-25 05:48 | NUR ---
SHIFT ASSESSMENT PT A/O X3. PT IS FORGETFUL AT TIMES. PT BP WAS LOW AT 85/49. PT RECEIVED AN IV NS 500 ML BOLUS PER MD ORDER. BP IS STILL LOW. PT NUVIA LIGHTHEADNESS OR DIZZINESS. PT PLACED ON 2L NC DUE TO SPO2 SATS IN THE 80S WHILE SLEEPING, SPO2 NOW >90%. PT ARM BOARD IS IN PLACE ON R ARM AND ANGIO ACCESS SITE HAS NO BLEEDING, SWELLING, OR HEMATOMA. PT NPO FOR ANGIO TODAY. WILL CONTINUE TO MONITOR AND PROVIDE CARE UNTIL HAND OFF.
--- NOTE | 2020-08-25 06:15 | NUR ---
LOW BP MD JOHNSON NOTIFIED OF PT BP NOT IMPROVING DESPITE NS BOLUS. PT NOT SYMPTOMATIC. MD JOHNSON W/ NO NEW ORDERS AT THIS TIME. WILL CONTINUE TO MONITOR.
--- NOTE | 2020-08-25 07:40 | NUR ---
pt laying in bed watching tv, a/ox3, forgetful, states she did not sleep well, too many interuptions, lungs are clear t/o, resp even and unlabored, v.s. stable, afebrile, is currently on 2 liters as her sats dropped durring the night, hrirr, tele in place running afib per monitor, see strip, 1+ edema noted to b/l le, pp faint, cap refill <3sec, vs stable, afebrile, iv site to lac is clear and patent, bt x4, abd flat soft nontender, incont of urine, skin frail, stiff ext, tremor noted to upper ext, dpfe weak, messi, call light in reach.
--- NOTE | 2020-08-25 10:45 | NUR ---
PT LEFT FOR PICTURE HANGER VIA BED, DAUGHTER IN ROOM.
--- NOTE | 2020-08-25 12:30 | NUR ---
pt returned to room after heart cath, v.s. stable, tr band site has a bit of swelling but looks fine, pt has no complaints except she wants some soada. she recieved two stents, call light in reach.
--- NOTE | 2020-08-25 19:17 | NUR ---
TR BAND IS OFF WITH OCCLUSIVE DRESSING IN PLACE, IS BRUISED BUT NO BLEEDING. CALL LIGHT IN REACH.
--- NOTE | 2020-08-26 06:02 | NUR ---
SHIFT SUMMARY PT WAS ALERT, ORIENTED, AND COOPERATIVE WITH CARE. R RADIAL SITE REMAIND UNCHANGED T/O THE NIGHT. SITE SHOWED SOME BRUISING AND SCANT BLOOD DRAINAGE UNDER TEG DRESSING. WRIST IN ARM BOARD T/O THE NIGHT. PT DENIED ANY PAIN AT SITE AND DENIED CHEST PAIN. VITALS WERE STABLE WITH BP 112-116 SYSTOLIC. HR 70-80'S. O2 SATS >90% ON ROOM AIR. PT WAS INCONTINENT OF URINE, ATTENDS IN PLACE WITH Q2H ERIKA CHECKS/CARE. PT HAD A QUIET UNEVENTFUL NIGHT AND IS EAGER TO GO HOME.
--- NOTE | 2020-08-26 14:41 | NUR ---
PATIENT STATES SHE LIVES ALONE ON HER DAUGHTER'S PROPERTY. DAUGHTER WORKS BUSINESS BANKING REPRESENTATIVE AND IS UNABLE TO CHECK IN REGULARLY. 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 DAUGHTER DROPS IN EVERY FEW DAYS. PHYSICAL THERAPY AND PHYSICIAN ARE AWARE AND RECOMMENDATION HAS BEEN MADE FOR SNF.
--- NOTE | 2020-08-26 17:49 | NUR ---
SHIFT NOTE PT WAS UP TO BEDSIDE CHAIR TODAY, SHE WAS A 2 PERSON MAX ASSIST TO CHAIR AND BACK TO BED. PT DID WORK WITH PHYSICAL THERAPY TODAY. IT WAS NOTED THAT SHE LIVES ALONE BUT ON DAUGHTER'S PROPERTY AND IS CHECKED ON DAILY BY DAUGHTER BUT SHE IS LEFT ALONE FOR 4 HOURS T/O THE DAY WHERE PT HAS BEEN GETTING UP WITHOUT ASSISTANCE THE RECOMMENDATION WAS FOR SNF BUT FAMILY REFUSED.
--- NOTE | 2020-08-27 05:01 | NUR ---
SHIFT SUMMARY PT WAS ALERT, ORIENTED, AND COOPERATIVE WITH CARE. PT HAD LITTLE CHANGE FROM PREVIOUS NOC SHIFT. PRAZOSIN NOT GIVEN ON PREVIOUS NOC SHIFT WITH STABLE BP T/O THE NIGHT. PRAZOSIN GIVEN THIS SHIFT AND BP BECAME HYPOTENSIVE AT 85/48, 500ML NS BOLUS GIVEN WITH BP UP TO HIGH 90'S SYSTOLIC. HR 70-80'S. O2 SATS >90% ON ROOM AIR, PT REPORTS NO SOB. R RADIAL SITE UNCHANGED FROM PREVIOUS NOC SHIFT, DISTAL CIRCULATION PRESENT. PT BECOMING MORE IRRITABLE WITH CARE AND IS WANTING TO GO HOME. PT WAS UP TO BEDSIDE COMMODE WITH 2 PERSON ASSIST. UNSTEADY GAIT.
[2020-08-27 05:25] LABS: Anion Gap 7 mmol/L (6-16); Blood Urea Nitrogen 22 mg/dL (8-24); Bun/Creatinine Ratio 25.3 (12.0-20.0); CO2, Blood 24 mmol/L (21-32); Calcium, Blood 7.6 mg/dL (8.5-10.1); Chloride, Blood 107 mmol/L (98-108); Creatinine, Blood 0.87 mg/dL (0.40-1.00); Glomerular Filtration Rate >60 (60-); Glucose, Blood 81 mg/dL (70-99); Potassium, Blood 3.6 mmol/L (3.5-5.5); Sodium, Blood 138 mmol/L (136-145)
--- NOTE | 2020-08-27 18:47 | NUR ---
PT REPORTS THAT SHE WANTS VERY MUCH TO D/C TO HOME AND IS EAGER TO RETURN HOME; PT RECOMMENDATION IS D/C TO SNF; MINIPRESS D/C'ED BY DR. PARISH DUE TO HYPOTENSIVE REACTION; PT PARTICIPATES IN CARE; ANGIO SITE ON R RADIAL SITE ECCHYMOTIC BUT WITH NO LEAKAGE UNDER TEGADERM; NONE OF PT'S CBGS REQUIRED INSULIN COVERAGE; PT REPORTED NO ADDITIONAL CONCERNS AT THIS TIME.
--- NOTE | 2020-08-28 04:27 | NUR ---
PRODUCT MARKETING SPECIALIST SUMMARY PT IS AXO X 3-4 W MOMENTS OF BEING SLIGHTLY CONFUSED. PT'S BP WNL AND VERY STABLE THIS SHIFT. PT REMIAINED BED BOUND MOST OF THE SHIFT HAVING MULTIPLE EPISODES OF INCONTINENCE. OPSITE ON RR IS C/D/I W NO SIGNS OF BLEEDING OR HEMATOMA. PT'S FEET ARE STILL VERY SWOLLEN BUT DENIES ANY CP OR PRESSURE THIS SHIFT. O2 SATS >92% ON RM AIR THIS SHIFT. VSS, WCTM.
[2020-08-28] MEDS ORDERED: CARV3.125 PO (10:27)
[2020-08-28] MEDS ORDERED: CLOP75 PO (10:28)
[2020-08-28] MEDS ORDERED: SPIR25 PO (10:28)
--- NOTE | 2020-08-28 16:15 | NUR ---
DISCHARGE SUMMARY PT A&Ox3; FORGETFUL AT TIMES. PT CALM AND COOPERATIVE WITH CARE. PT UP WITH 1 PERSON ASSIST TO BEDSIDE COMMODE, BM THIS AM; INCONTINENT LAST SHIFT. PT DENIES PAIN, CHEST PAIN, SOB, NAUSEA AND DIZZINESS. SPO2 >90% ON RA. VSS. NO OTHER ACUTE CHANGES NOTED DURING SHIFT. PT WEAK, CALLING FOR ASSISTANCE OFTEN, AND PT/OT RECCOMENDING SNF, PT AGREEABLE THIS AM TO GO TO SNF, DAUGHTER REFUSED AND STATED SHE WOULD BE RETURNING HOME; NOTIFED DAUGHTER OF PATIENT CARE NEEDS, EDUCATED ON SNF PT/OT AND PT DAUGHTER STATES SHE WOULD BE TAKING HER MOTHER HOME WITH HOME HEALTH AND [employer] WHICH PROVIDE 4HR A DAY. [facility], NOTIFIED AMY IN CARE MANAGEMENT. DAUGHTER AT BEDSIDE THIS AFTERNOON, EDUCATED PT AND DAUGHTER ON DISCHARGE INSTRUCTIONS, FOLLOW UP APPOINTMENTS AND MEDICATIONS. A COPY OF DISCHARGE MED REC WITH ELECTRONIC SIGNATURE WAS PROVIDED. STENT CARDS IN FOLD FOR HOME. EDUCATED ON THE IMPORTANCE OF MEDICATIONS COMPLIANCE AND ACTIVITY RESTRICTIONS. PT LEFT ROOM VIA WHEELCHAIR WITH DAUGHTER AT 1410, DAUGHTER DECLINED ASSISTANCE FROM STAFF TO HELP OUT TO CARE. PT HAD NO CLOTHING AND DAUGHTER DID NOT BRING CLOTHING FOR PATIENT, PT LEFT IN GOWN AND PANTS.
== END 2020-08-28 14:10 | disposition home health service (06) | DRG 246 ==
LOC: ER 19:18 → PCU 19:19
PROVIDERS: Emergency Medicine; Internal Medicine; Physician Assistant; Student in an Organized Health Care Education/Training Program; ADMIT Internal Medicine
PROC: B2111ZZ Fluoroscopy of Multiple Coronary Arteries using Low Osmolar Contrast (ICD-10-PCS; 2020-08-24)
PROC: B2151ZZ Fluoroscopy of Left Heart using Low Osmolar Contrast (ICD-10-PCS; 2020-08-24)
PROC: 027135Z Dilation of Coronary Artery, Two Arteries with Two Drug-eluting Intraluminal Devices, Percutaneous Approach (ICD-10-PCS; principal; 2020-08-25)
PROC: B2101ZZ Fluoroscopy of Single Coronary Artery using Low Osmolar Contrast (ICD-10-PCS; 2020-08-25)
DX: I21.4 Non-ST elevation (NSTEMI) myocardial infarction (principal); I50.23 Acute on chronic systolic (congestive) heart failure; N39.0 Urinary tract infection, site not specified; I51.81 Takotsubo syndrome; Z20.822 Contact with and (suspected) exposure to COVID-19; R00.1 Bradycardia, unspecified; I95.9 Hypotension, unspecified; E11.9 Type 2 diabetes mellitus without complications; R11.2 Nausea with vomiting, unspecified; I11.0 Hypertensive heart disease with heart failure; G20 Parkinson's disease; B96.1 Klebsiella pneumoniae [K. pneumoniae] as the cause of diseases classified elsewhere; F02.80 Dementia in other diseases classified elsewhere, unspecified severity, without behavioral disturbance, psychotic disturbance, mood disturbance, and anxiety; R19.7 Diarrhea, unspecified; I25.5 Ischemic cardiomyopathy; Z87.891 Personal history of nicotine dependence; Z88.0 Allergy status to penicillin; Z88.2 Allergy status to sulfonamides; Z79.82 Long term (current) use of aspirin; Z79.899 Other long term (current) drug therapy
CPT/HCPCS: 36415; 71045; 74176; 76937; 80048; 80053; 81001; 82947; 83605; 83690; 83880; 84484; 85025; 85027; 85347; 85730; 87077; 87086; 87186; 93005; 93010; 93306; 93454; 93458; 96365; 96374; 96375; 96376; 97110; 97162; 97530; 99152; 99153; 99285-25; A9270; C1725; C1769; C1874; C1887; C1894; C9600; C9601; G0378; J0696; J1644; J1650; J2250; J2370; J2405; J3010; J7030; J7040; J7050; Q9967; U0004

== ENCOUNTER 2020-08-30 07:58 | Inpatient (IN) | payer MEDICARE, OTHER ==
[~2020-08-30] VITALS: Ht 152.4 cm; Wt 77.8 kg
[~2020-08-30 07:58] MED LIST changes: +ATOR40TA PO; +CARV3.125 PO; +CLOP75 PO; +KLOR-CON 1010 ME1 PO; +LIDO TOP; +MINIPRESS2 MG PO; +SKYADERM-LP 2.1 EACH TOP; +SPIR25 PO; +[UNRECOGNIZED DRUG - OTHER] TOP
[2020-08-30 08:22] LABS: BASOPHILS ABSOLUTE AUTO 0.04 K/mm3 (0.00-0.23); BASOPHILS PERCENT AUTO 0 % (0-2); EOSINOPHILS ABSOLUTE AUTO 0.22 K/mm3 (0.00-0.68); EOSINOPHILS PERCENT AUTO 2 % (0-6); Hematocrit 35.3 % (33.0-51.0); Hemoglobin 11.3 g/dL (11.5-16.0); IMMATURE GRAN ABSOLUTE AUTO 0.07 K/mm3 (0.00-0.10); IMMATURE GRAN PERCENT AUTO 1 % (0-1); LYMPHOCYTES PERCENT AUTO 22 % (21-46); MONOCYTES ABSOLUTE AUTO 0.42 K/mm3 (0.16-1.47); MONOCYTES PERCENT AUTO 5 % (4-13); Mean Corpuscular HGB 28.6 pg (26.0-34.0); Mean Corpuscular Volume 89 fL (80-100); Mean Platelet Volume 10.9 fL (9.1-12.4); NEUTROPHILS ABSOLUTE AUTO 6.42 K/mm3 (1.96-9.15); NEUTROPHILS PERCENT AUTO 70 % (41-73); Platelet Count 268 K/mm3 (150-400); RDW Coefficient Variation 13.3 % (11.7-14.2); Red Blood Cell Count 3.95 M/mm3 (3.80-5.20); White Blood Cell Count 9.17 K/mm3 (4.00-11.30)
[2020-08-30 08:37] LABS: International Normalized Ratio 0.97; Prothrombin Time Results 10.5 Sec (9.7-11.5)
[2020-08-30 09:00] LABS: Alanine Aminotransfer (ALT/SGP <6 U/L (12-78); Albumin/Globulin Ratio 0.9 (0.8-1.8); Alk Phos 113 U/L (50-136); Anion Gap 7 mmol/L (6-16); Aspartate Aminotrans (AST/SGOT 9 U/L (12-37); Bilirubin, Total 0.4 mg/dL (0.1-1.0); Blood Urea Nitrogen 11 mg/dL (8-24); Bun/Creatinine Ratio 14.3 (12.0-20.0); CO2, Blood 26 mmol/L (21-32); Calcium, Blood 8.5 mg/dL (8.5-10.1); Chloride, Blood 105 mmol/L (98-108); Creatinine, Blood 0.77 mg/dL (0.40-1.00); Globulin, Blood 3.5 g/dL (2.2-4.0); Glomerular Filtration Rate >60 (60-); Glucose, Blood 118 mg/dL (70-99); Potassium, Blood 3.8 mmol/L (3.5-5.5); Sodium, Blood 138 mmol/L (136-145); Total Protein, Blood 6.5 g/dL (6.4-8.2)
[2020-08-30 11:14] LABS: Creatine Kinase MB 1.7 ng/mL (0.0-3.6); Creatine Kinase MB Index 3.6 (0.0-4.0)
[2020-08-30 12:27] LABS: SARS-Cov-2 (COVID-19) PCR, MMC NEGATIVE (NEGATIVE)
[2020-08-30 15:08] LABS: Hematocrit 32.7 % (33.0-51.0); Hemoglobin 10.5 g/dL (11.5-16.0)
--- NOTE | 2020-08-30 15:25 | NUR ---
UPSET STOMACH C/O OF UPSET STOMACH POINTING TO MID EPIGASTRIC REGION. PT REPORTS THIS HAS BEEN OCCURING "THE WHOLE DAY" AND STATES TUMS RELIEVING FACTOR. T.O. FROM DR. MEIER FOR MAALOX 15ML Q8H PRN FOR UPSET STOMACH. EMAR UPDATED.
--- NOTE | 2020-08-30 19:20 | NUR ---
SHIFT SUMMARY/ADMISSION NOTE PT ARRIVED TO MEDICAL FLOOR FROM ED AT APPROX 1430. PT AxOx3 WITH INTERM CONFUSION/FORGETFULNESS. DAUGHTER, ERNESTO IN ROOM TO ASSIST WITH ADMISSION. PT IS HERE AFTER DC'ING FROM HOSPITAL A FEW DAYS AGO. SHE REPORTS CHRONIC ABDOMINAL AND NACHO SHOULDER PAIN. MEDICATED PER EMAR. PT ADMITS SHE HAS NOT HAD A BM x1 WEEK. BOWEL CARE ORDERED. PT ON BEDREST FOR FREQUENT FALLS AND GENERAL WEAKNESS. INCONTINENT OF URINE. PT IS CURRENTLY ON OBS, WITH PLANS TO MONITOR LABS. VITALS REVIEWED. PT CURRENTLY RESTING IN BED WITH CALL LIGHT IN REACH AND BED ALARM ON. DENIES ANY NEEDS AT THIS TIME.
--- NOTE | 2020-08-31 04:08 | NUR ---
SHIFT SUMMARY ADMITTED FOR SOB/CP/N/V FOLLOWING PREVIOUS ADMISSION FOR NSTEMI WITH CATH. PT IS FULL CODE. PT STARTED ON BOWEL CARE THIS SHIFT. NO BM. PT BEGAN HALLUCINATING AND HAS BEEN INTERMITTENTLY CONFUSED. NO OTHER CONCERNS THIS SHIFT.
--- NOTE | 2020-08-31 04:52 | NUR ---
CTA/SHIPPER I HAVE ASSESSED THIS PT. I HAVE READ THE SHIPPER'S DOCUMENTATION AND I AGREE. THE SHIFT SUMMARY IS IN SHIPPER'S NOTES
[2020-08-31 05:15] LABS: BASOPHILS ABSOLUTE AUTO 0.03 K/mm3 (0.00-0.23); BASOPHILS PERCENT AUTO 0 % (0-2); EOSINOPHILS PERCENT AUTO 2 % (0-6); Hemoglobin 9.4 g/dL (11.5-16.0); IMMATURE GRAN ABSOLUTE AUTO 0.05 K/mm3 (0.00-0.10); IMMATURE GRAN PERCENT AUTO 1 % (0-1); LYMPHOCYTES ABSOLUTE AUTO 2.68 K/mm3 (0.84-5.20); LYMPHOCYTES PERCENT AUTO 27 % (21-46); MONOCYTES ABSOLUTE AUTO 0.59 K/mm3 (0.16-1.47); MONOCYTES PERCENT AUTO 6 % (4-13); Mean Corpuscular HGB Conc 31.3 g/dL (31.5-36.5); Mean Corpuscular Volume 89 fL (80-100); Mean Platelet Volume 11.2 fL (9.1-12.4); NEUTROPHILS ABSOLUTE AUTO 6.43 K/mm3 (1.96-9.15); NEUTROPHILS PERCENT AUTO 64 % (41-73); Platelet Count 261 K/mm3 (150-400); RDW Coefficient Variation 13.5 % (11.7-14.2); RDW Standard Deviation 44.2 fL (35.1-46.3); Red Blood Cell Count 3.36 M/mm3 (3.80-5.20); White Blood Cell Count 9.98 K/mm3 (4.00-11.30)
[2020-08-31 05:43] LABS: Alanine Aminotransfer (ALT/SGP <6 U/L (12-78); Albumin, Blood 2.6 g/dL (3.4-5.0); Albumin/Globulin Ratio 0.8 (0.8-1.8); Alk Phos 91 U/L (50-136); Anion Gap 4 mmol/L (6-16); Aspartate Aminotrans (AST/SGOT <3 U/L (12-37); Bilirubin, Total 0.5 mg/dL (0.1-1.0); Blood Urea Nitrogen 12 mg/dL (8-24); Bun/Creatinine Ratio 15.8 (12.0-20.0); CO2, Blood 29 mmol/L (21-32); Calcium, Blood 8.1 mg/dL (8.5-10.1); Chloride, Blood 103 mmol/L (98-108); Creatinine, Blood 0.76 mg/dL (0.40-1.00); Globulin, Blood 3.2 g/dL (2.2-4.0); Glomerular Filtration Rate >60 (60-); Glucose, Blood 94 mg/dL (70-99); Potassium, Blood 4.3 mmol/L (3.5-5.5); Sodium, Blood 136 mmol/L (136-145); Total Protein, Blood 5.8 g/dL (6.4-8.2)
--- NOTE | 2020-08-31 18:01 | NUR ---
Spiritual care note: Per admit trigger, I was tasked to meet with Mrs. Blas to offer information about advanced care planning. She was quite frail and not really interested i this discussion. [facility] Orthopedic Rn services will remain available.
--- NOTE | 2020-08-31 19:46 | NUR ---
SHIFT SUMMARY PT UP TO CHAIR WITH O.T. THIS AFTERNOON AND WORKED ON BRUSHING HER HAIR. REPORTED PAIN TO SHOULDERS WITH PAIN MEDS GIVEN AND HEAT APPLIED FOR COMFORT. HAS HAD NAUSEA ON AND OFF TODAY WITH 1 EPISODE OF VOMITTING PRIOR TO LUNCH. HAS EATEN SMALL AMOUNTS FROM EACH MEAL. O2 REMOVED LATE THIS AFTERNOON AND HASN'T APPEARED TO HAVE RESP DISTRESS.
--- NOTE | 2020-09-01 05:39 | NUR ---
SHIFT SUMMARY: PATIENT IS A&O X3 FORGETFUL THIS MORNING. INC. OF URINE THIS SHIFT. VSS, MAINTAINS SATS 92-94% ON RA. CHRONIC SHOULDER PAIN WAS WELL CONTROLED WITH PRN OXYCODONE AND HEATING PAD. NO REPORTS OF NAUSEA THIS SHIFT.
[2020-09-01 07:48] LABS: Bun/Creatinine Ratio 20.4 (12.0-20.0); Calcium, Blood 7.9 mg/dL (8.5-10.1); Creatinine, Blood 1.08 mg/dL (0.40-1.00); Potassium, Blood 4.3 mmol/L (3.5-5.5)
--- NOTE | 2020-09-01 15:39 | NUR ---
SHIFT SUMMARY NO ACUTE CHANGES TO PRESENT THIS SHIIFT. PT AWAKE DURING SHIFT REPORT. NO C/O. PT UP TO CHAIR WITH P/T TODAY, REMAINING IN CHAIR SEVERAL HOURS BEFORE GOING BACK TO BED. 1P PIVOT TX TO CHAIR AND BACK, PER P/T. DR PARISH IN TO SEE PT THIS AM. PT NOT WANTING TO GO TO SNF FOR REHAB. PT REPORTED DAUGHTER NOT WANTING PT TO GO TO SNF EITHER. PT STATES THAT SHE HAS CAREGIVERS IN THE MORNING AND EVENING. DAUGHTER COMES OVER IN-BETWEEN TO ASSIST. PER REPORT, PT LIVES IN A TRAILER ON [place] [address]. LE'S WITH SOME SWELLING TO FEET AND SLIGHT REDNESS; ELEVATED ON PILLOWS AT THIS TIME. CBG'S WNL'S; SEE CHART. PT WORKING WITH O/T AT THIS TIME. CALL LT IN REACH. BED ALARM ON FOR SAFETY.
[2020-09-02 05:11] LABS: Bun/Creatinine Ratio 23.7 (12.0-20.0); Calcium, Blood 7.8 mg/dL (8.5-10.1); Creatinine, Blood 1.18 mg/dL (0.40-1.00); Potassium, Blood 4.2 mmol/L (3.5-5.5)
--- NOTE | 2020-09-02 05:43 | NUR ---
PT IS ALERT, FORGETFUL AT TIMES. CBG AC/HS, TELE IN SR. PLANS PER MD CHART NOTES D/C TO SNF. SWOLLEN FEET, PT IS PLEASANT.
--- NOTE | 2020-09-02 17:51 | NUR ---
SHIFT SUMMARY- PT IS A/O, PLESANT AND COOPERATIVE. SHE IS EATING AND DRINKING WELL. SHE IS INC OF URINE. NO BM THIS SHIFT. HER TELE HAS BEEN SINUS. SHE WORKED WITH PT THIS SHIFT AND TOLERATED WELL. HER KIDNEY FUNCTION IS DOWN A BIT TODAY FROM YESTERDAY, DISCUSSED GENTLE HYDRATION WITH DR. PARISH. SHE WILL DISCUSS WITH DR. HERNANDEZ. SHE WILL LOOK AT HER CARDIAC FUNCTION TO SEE IF THIS IS APPROPRIATE. PTS BED IS IN THE LOW POSITION AND CALL LIGHT IS WITHIN REACH.
--- NOTE | 2020-09-03 05:03 | NUR ---
PT IS A/O, SOMETIMES FORGETFUL UP THIS SHIFT TO BATHROOM WITH 1-ASSIST, GAIT BELT, AND FWW. INCONTINENT AT TIMES. MEDICATED FOR PAIN IN LEFT SHOULDER PER EMAR. CBG AC/HS.
[2020-09-03 05:29] LABS: Bun/Creatinine Ratio 26.1 (12.0-20.0); Calcium, Blood 7.9 mg/dL (8.5-10.1); Potassium, Blood 4.4 mmol/L (3.5-5.5)
--- NOTE | 2020-09-03 17:04 | NUR ---
SHIFT SUMMARY- PT IS A/O, PLESANT AND COOPERATIVE. HER APPETITE HAS IMPROVED FROM THE PREVIOUS DAY. SHE TOOK A SHOWER THIS SHIFT. SHE WAS UP TO THE CHAIR THIS FOR MEALS THIS SHIFT. HER BED IS IN THE LOW POSITION AND CALL LIGHT IS WITHIN REACH.
--- NOTE | 2020-09-04 05:54 | NUR ---
PT IS A/O, PLEASANT, MEDICATED THIS SHIFT FOR ABD AND LEFT SHOULDER PAIN. PT IS INCONTINENT WEARING ATTENDS. CBG AC/HS, TELE IN SR, POSSIBLE D/C TODAY.
[2020-09-04] MEDS ORDERED: DOC250 PO (07:46)
[2020-09-04] MEDS ORDERED: MIRALAX17 GM PO (07:46)
[2020-09-04] MEDS ORDERED: FURO20 PO (09:50)
[2020-09-04 14:08] LABS: SARS-Cov-2 (COVID-19) PCR, MMC NEGATIVE (NEGATIVE)
--- NOTE | 2020-09-04 18:34 | NUR ---
DISCHARGE SUMMARY/SHIFT SUMMARY PT AxOx4 WITH INTERMITTENT CONFUSION. PT DISCHARGING HOME TODAY WITH HOME HEALTH. PT WORKED WITH PT/OT TODAY. INCONTINENT AND CONTINENT. 1 ASSIST W/FWW TO BSC. PT DENIED PAIN THIS SHIFT. VITALS REVIEWED. TELE RUNNING SR AT 75. DISCHARGE INSTRUCTIONS DISCUSSED WITH PATIENT AND DAUGHTER, ERNESTO. PT AND DAUGHTER VERBALIZE UNDERSTANDING, INCLUDING DC MEDICATIONS, FOLLOW UP APPOINTMENTS AND HH ORDERS. DENIES ANY FURTHER QUESTIONS AT THIS TIME. PT SAFELY ESCORTED OUT VIA WC WITH DAUGHTER AND AUTHOR'S AGENT.
--- NOTE | 2020-09-04 18:39 | NUR ---
Spiritual care note: Mrs. Blas was tearful as she told me she did not want to go to SNF and wanted to instead return home with ehr dtr. She asked me to pray for her and I happily complied. She admits that "the last time I came right back, " but she does not want to be away from home and her dtr. I provided emotional affirmation and assurance og God's love and protection to good effect. She was smiling by the time visit concluded. Mrs. Blas was discharged home s couple hours later.
== END 2020-09-04 18:35 | disposition home health service (06) | DRG 280 ==
LOC: ER 07:58 → ERHOLD 07:59 → MEDS 14:32 → ENPENDDIS 09-04 09:47 → MEDS 09-04 18:35
PROVIDERS: Family Medicine; Internal Medicine; Nurse Practitioner Acute Care; Physician Assistant; ADMIT Hospitalist
DX: I11.0 Hypertensive heart disease with heart failure (principal); I21.4 Non-ST elevation (NSTEMI) myocardial infarction; J96.01 Acute respiratory failure with hypoxia; N17.9 Acute kidney failure, unspecified; I50.9 Heart failure, unspecified; Z20.822 Contact with and (suspected) exposure to COVID-19; I95.9 Hypotension, unspecified; R10.9 Unspecified abdominal pain; E03.9 Hypothyroidism, unspecified; K21.9 Gastro-esophageal reflux disease without esophagitis; G20 Parkinson's disease; E11.9 Type 2 diabetes mellitus without complications; F32.9 Major depressive disorder, single episode, unspecified; I25.10 Atherosclerotic heart disease of native coronary artery without angina pectoris; I10 Essential (primary) hypertension; Z88.0 Allergy status to penicillin; Z88.2 Allergy status to sulfonamides; Z79.899 Other long term (current) drug therapy; Z95.5 Presence of coronary angioplasty implant and graft; Z79.82 Long term (current) use of aspirin; Z79.02 Long term (current) use of antithrombotics/antiplatelets; Z79.4 Long term (current) use of insulin; Z87.891 Personal history of nicotine dependence
CPT/HCPCS: 36415; 71046; 74176; 76830; 76856; 80048; 80053; 82550; 82553; 82947; 83735; 83880; 84145; 84484; 85014; 85018; 85025; 85610; 93005; 93010; 93308; 93321; 96360; 96361; 96365; 96375; 97110; 97162; 97166; 97530; 97535; 99285-25; A9270; G0378; J1940; J2405; J3475; J7030; U0004

== ENCOUNTER 2020-11-28 23:47 | Emergency (ER) | payer MEDICARE, OTHER ==
[~2020-11-28] VITALS: Ht 152.4 cm; Wt 72.6 kg
[~2020-11-28 23:47] MED LIST changes: +DOC250 PO; +FURO20 PO; +MIRALAX17 GM PO
[2020-11-29 00:02] LABS: BASOPHILS ABSOLUTE AUTO 0.04 K/mm3 (0.00-0.23); BASOPHILS PERCENT AUTO 1 % (0-2); EOSINOPHILS ABSOLUTE AUTO 0.26 K/mm3 (0.00-0.68); EOSINOPHILS PERCENT AUTO 3 % (0-6); Hematocrit 32.5 % (33.0-51.0); Hemoglobin 10.4 g/dL (11.5-16.0); IMMATURE GRAN ABSOLUTE AUTO 0.04 K/mm3 (0.00-0.10); IMMATURE GRAN PERCENT AUTO 1 % (0-1); LYMPHOCYTES ABSOLUTE AUTO 3.31 K/mm3 (0.84-5.20); LYMPHOCYTES PERCENT AUTO 38 % (21-46); MONOCYTES ABSOLUTE AUTO 0.49 K/mm3 (0.16-1.47); MONOCYTES PERCENT AUTO 6 % (4-13); Mean Corpuscular Volume 88 fL (80-100); Mean Platelet Volume 9.3 fL (9.1-12.4); NEUTROPHILS ABSOLUTE AUTO 4.57 K/mm3 (1.96-9.15); NEUTROPHILS PERCENT AUTO 52 % (41-73); Platelet Count 265 K/mm3 (150-400); RDW Coefficient Variation 13.4 % (11.7-14.2); RDW Standard Deviation 43.4 fL (35.1-46.3); Red Blood Cell Count 3.71 M/mm3 (3.80-5.20); White Blood Cell Count 8.71 K/mm3 (4.00-11.30)
[2020-11-29 00:23] LABS: Alanine Aminotransfer (ALT/SGP 10 U/L (12-78); Albumin, Blood 3.2 g/dL (3.4-5.0); Alk Phos 104 U/L (50-136); Anion Gap 6 mmol/L (6-16); Aspartate Aminotrans (AST/SGOT 7 U/L (12-37); Bilirubin, Total 0.4 mg/dL (0.1-1.0); Blood Urea Nitrogen 16 mg/dL (8-24); Bun/Creatinine Ratio 20.8 (12.0-20.0); CO2, Blood 29 mmol/L (21-32); Calcium, Blood 7.9 mg/dL (8.5-10.1); Chloride, Blood 102 mmol/L (98-108); Creatinine, Blood 0.77 mg/dL (0.40-1.00); Globulin, Blood 3.3 g/dL (2.2-4.0); Glomerular Filtration Rate >60 (60-); Glucose, Blood 86 mg/dL (70-99); Potassium, Blood 3.7 mmol/L (3.5-5.5); Sodium, Blood 137 mmol/L (136-145); Total Protein, Blood 6.5 g/dL (6.4-8.2); Troponin I <0.015 ng/mL (0.000-0.040)
== END 2020-11-29 05:29 | disposition home or self-care (01) ==
LOC: ER 23:47
PROVIDERS: Emergency Medicine
DX: R07.9 Chest pain, unspecified (principal); E11.9 Type 2 diabetes mellitus without complications; I10 Essential (primary) hypertension; Z88.0 Allergy status to penicillin; Z88.2 Allergy status to sulfonamides; Z95.5 Presence of coronary angioplasty implant and graft; Z79.82 Long term (current) use of aspirin; Z79.4 Long term (current) use of insulin
CPT/HCPCS: 71045; 80053; 84484; 85025; 93005; 93010; 99285-25

== ENCOUNTER 2020-12-17 10:12 | Emergency (ER) | payer MEDICARE, OTHER ==
[~2020-12-17] VITALS: Ht 152.4 cm; Wt 61.2 kg
[2020-12-17 11:05] LABS: Source, Urine Catheter
[2020-12-17 11:09] LABS: Appearance, Urine Hazy (Clear); Blood, Urine 3+ (Neg); Color, Urine Yellow (P-Yellow); Glucose Qualitative, Urine Neg (Neg); Ketones, Urine 4+ (Neg); Leukocyte Esterase, Urine 1+ (Neg); Nitrite, Urine Neg (Neg); Protein, Urine 3+ (Neg); Specific Gravity, Urine 1.025 (1.003-1.022); Urobilinogen, Urine NORM (Normal)
[2020-12-17 11:12] LABS: Bilirubin, Urine 1+ (Neg)
[2020-12-17 11:22] LABS: Amorphous Light (0-Heavy); Bacteria Few /hpf; Mucus Light (0-Heavy); Squamous Epithelial Cells Few /hpf (Few)
[2020-12-17 11:24] LABS: Granular Casts 0-2 /lpf (0); Renal Epithelial Few /hpf (0-Rare); Transitional Epithelial Cells Few /hpf (0-Rare)
[2020-12-17 11:31] LABS: BASOPHILS ABSOLUTE AUTO 0.01 K/mm3 (0.00-0.23); BASOPHILS PERCENT AUTO 0 % (0-2); EOSINOPHILS PERCENT AUTO 0 % (0-6); Hematocrit 36.6 % (33.0-51.0); Hemoglobin 12.1 g/dL (11.5-16.0); IMMATURE GRAN ABSOLUTE AUTO 0.03 K/mm3 (0.00-0.10); IMMATURE GRAN PERCENT AUTO 1 % (0-1); LYMPHOCYTES ABSOLUTE AUTO 0.93 K/mm3 (0.84-5.20); LYMPHOCYTES PERCENT AUTO 17 % (21-46); MONOCYTES ABSOLUTE AUTO 0.26 K/mm3 (0.16-1.47); MONOCYTES PERCENT AUTO 5 % (4-13); Mean Corpuscular HGB 28.1 pg (26.0-34.0); Mean Corpuscular HGB Conc 33.1 g/dL (31.5-36.5); Mean Corpuscular Volume 85 fL (80-100); Mean Platelet Volume 10.4 fL (9.1-12.4); NEUTROPHILS ABSOLUTE AUTO 4.22 K/mm3 (1.96-9.15); NEUTROPHILS PERCENT AUTO 77 % (41-73); Platelet Count 224 K/mm3 (150-400); RDW Coefficient Variation 13.4 % (11.7-14.2); RDW Standard Deviation 42.1 fL (35.1-46.3); White Blood Cell Count 5.45 K/mm3 (4.00-11.30)
[2020-12-17 11:55] LABS: Albumin, Blood 3.4 g/dL (3.4-5.0); Albumin/Globulin Ratio 0.9 (0.8-1.8); Bilirubin, Direct 0.2 mg/dL (0.0-0.3); Bilirubin, Indirect 0.4 mg/dL (0.1-0.7); Bilirubin, Total 0.6 mg/dL (0.1-1.0); Bun/Creatinine Ratio 34.1 (12.0-20.0); Calcium, Blood 8.2 mg/dL (8.5-10.1); Creatinine, Blood 0.97 mg/dL (0.40-1.00); Globulin, Blood 3.7 g/dL (2.2-4.0); Magnesium, Blood 1.6 mg/dL (1.6-2.4); Potassium, Blood 3.6 mmol/L (3.5-5.5); Total Protein, Blood 7.1 g/dL (6.4-8.2)
[2020-12-17 12:24] LABS: Base Excess Venous -2.1 mmol/L; Bicarbonate Venous 22.7 mmol/L (24.0-30.0); PCO2 Venous 41.5 mmHg (38-42); PO2 Venous 164 mmHg (38-42); pH Blood Venous 7.36 (7.34-7.37)
[2020-12-17] MEDS ORDERED: PROM12.5S PR (14:15)
[2020-12-17] MEDS ORDERED: METO10 PO (14:15)
== END 2020-12-17 15:08 | disposition home or self-care (01) ==
LOC: ER 10:12
PROVIDERS: Student in an Organized Health Care Education/Training Program
DX: U07.1 COVID-19 (principal); R94.31 Abnormal electrocardiogram [ECG] [EKG]; I10 Essential (primary) hypertension; I25.2 Old myocardial infarction; E11.9 Type 2 diabetes mellitus without complications; Z88.0 Allergy status to penicillin; Z88.2 Allergy status to sulfonamides; Z79.899 Other long term (current) drug therapy; Z79.4 Long term (current) use of insulin; Z79.82 Long term (current) use of aspirin; Z79.02 Long term (current) use of antithrombotics/antiplatelets
CPT/HCPCS: 36415; 71045; 74177; 80048; 80076; 81001; 82803; 82947; 83605; 83690; 83735; 85025; 93005; 93010; 96374-59; 96375; 99285-25; A9270; J1885; J2405; J2765; J3475; J7030; P9612; Q9967

== ENCOUNTER 2020-12-21 18:45 | Observation (INO) | payer MEDICARE, OTHER ==
[~2020-12-21] VITALS: Ht 167.6 cm; Wt 77.1 kg
[~2020-12-21 18:45] MED LIST changes: +LEVSOD100 PO; +METO10 PO; +PROM12.5S PR; -SYNTHROID100 MCG PO
[2020-12-21 19:32] LABS: BASOPHILS ABSOLUTE AUTO 0.02 K/mm3 (0.00-0.23); BASOPHILS PERCENT AUTO 0 % (0-2); EOSINOPHILS PERCENT AUTO 0 % (0-6); Hematocrit 40.6 % (33.0-51.0); Hemoglobin 13.3 g/dL (11.5-16.0); IMMATURE GRAN ABSOLUTE AUTO 0.06 K/mm3 (0.00-0.10); IMMATURE GRAN PERCENT AUTO 1 % (0-1); LYMPHOCYTES ABSOLUTE AUTO 2.05 K/mm3 (0.84-5.20); LYMPHOCYTES PERCENT AUTO 30 % (21-46); MONOCYTES ABSOLUTE AUTO 0.42 K/mm3 (0.16-1.47); MONOCYTES PERCENT AUTO 6 % (4-13); Mean Corpuscular HGB 27.4 pg (26.0-34.0); Mean Corpuscular HGB Conc 32.8 g/dL (31.5-36.5); Mean Corpuscular Volume 84 fL (80-100); Mean Platelet Volume 10.6 fL (9.1-12.4); NEUTROPHILS ABSOLUTE AUTO 4.25 K/mm3 (1.96-9.15); NEUTROPHILS PERCENT AUTO 63 % (41-73); Platelet Count 278 K/mm3 (150-400); RDW Coefficient Variation 13.6 % (11.7-14.2); RDW Standard Deviation 41.5 fL (35.1-46.3); Red Blood Cell Count 4.86 M/mm3 (3.80-5.20)
[2020-12-21 19:41] LABS: Alanine Aminotransfer (ALT/SGP 13 U/L (12-78); Albumin, Blood 3.4 g/dL (3.4-5.0); Albumin/Globulin Ratio 0.8 (0.8-1.8); Alk Phos 137 U/L (50-136); Anion Gap 8 mmol/L (6-16); Aspartate Aminotrans (AST/SGOT 13 U/L (12-37); Bilirubin, Total 0.4 mg/dL (0.1-1.0); Blood Urea Nitrogen 18 mg/dL (8-24); Bun/Creatinine Ratio 26.5 (12.0-20.0); CO2, Blood 26 mmol/L (21-32); Calcium, Blood 8.7 mg/dL (8.5-10.1); Chloride, Blood 104 mmol/L (98-108); Creatinine, Blood 0.68 mg/dL (0.40-1.00); Globulin, Blood 4.1 g/dL (2.2-4.0); Glomerular Filtration Rate >60 (60-); Glucose, Blood 108 mg/dL (70-99); Sodium, Blood 138 mmol/L (136-145); Total Protein, Blood 7.5 g/dL (6.4-8.2)
[2020-12-21 19:48] LABS: Source, Urine Catheter
[2020-12-21 19:55] LABS: Blood, Urine 2+ (Neg); Glucose Qualitative, Urine Neg (Neg); Ketones, Urine 3+ (Neg); Leukocyte Esterase, Urine 2+ (Neg); Nitrite, Urine Pos (Neg); Protein, Urine 4+ (Neg); Specific Gravity, Urine 1.015 (1.003-1.022); Urobilinogen, Urine NORM (Normal)
[2020-12-21 19:58] LABS: Appearance, Urine Hazy (Clear); Bilirubin, Urine 1+ (Neg); Color, Urine Yellow (P-Yellow)
[2020-12-21 20:01] LABS: Bacteria Many /hpf
[2020-12-21 20:03] LABS: Squamous Epithelial Cells Few /hpf (Few); Transitional Epithelial Cells Rare /hpf (0-Rare)
[2020-12-21] MEDS ORDERED: AMLO5 PO (20:26)
[2020-12-21] MEDS ORDERED: ZOLOFT50 MG PO (20:28)
[2020-12-21] MEDS ORDERED: MINIPRESS2 M1 PO (20:28)
[2020-12-21] MEDS ORDERED: SKYADERM-LP 2.1 EACH TOP (20:28)
[2020-12-21] MEDS ORDERED: FUROSEMIDE20 MG PO (20:29)
[2020-12-21] MEDS ORDERED: ATOR40TA PO (20:29)
[2020-12-21] MEDS ORDERED: ISOSORBIDE MONO30 MG PO (20:29)
--- NOTE | 2020-12-22 04:27 | NUR ---
PATIENT ARRIVED TO UNIT. HUNG SECOND DOSE OF POTASSIUM (FOR 3.0) ATTEMPTED TO START SECOND IV SITE BUT UNSUCCESSFUL. OTHERWISE, CONFUSED, AND ONLY ALERT TO NAME AND PLACE. BED ALARM ON
[2020-12-22 05:38] LABS: Anion Gap 9 mmol/L (6-16); Blood Urea Nitrogen 19 mg/dL (8-24); Bun/Creatinine Ratio 28.5 (12.0-20.0); CO2, Blood 25 mmol/L (21-32); Calcium, Blood 8.2 mg/dL (8.5-10.1); Chloride, Blood 102 mmol/L (98-108); Creatinine, Blood 0.67 mg/dL (0.40-1.00); Glomerular Filtration Rate >60 (60-); Glucose, Blood 87 mg/dL (70-99); Potassium, Blood 3.4 mmol/L (3.5-5.5); Sodium, Blood 136 mmol/L (136-145)
[2020-12-22 12:26] LABS: C-REACTIVE PROTEIN, EXT RANGE 1.75 mg/dL (0.000-0.300); Magnesium, Blood 1.4 mg/dL (1.6-2.4); Thyroid Stimulating Hormone 2.35 uIU/mL (0.360-4.800)
[2020-12-22 12:59] LABS: SARS-Cov-2 (COVID-19) PCR, MMC POSITIVE (NEGATIVE)
--- NOTE | 2020-12-22 18:59 | NUR ---
SHIFT SUMMARY PATIENT RECEIVED PAIN MEDS AND ANTI NAUSEA MEDS PER THE MAR THIS SHIFT. NO ACUTE CHANGES. THE PATIENT IS COOPERATIVE AND HELPFUL WITH CARE. VITAL SIGNS STABLE. THE PATIENT IS IN BED EATING DINNER WITH CALL LIGHT IN REACH.
--- NOTE | 2020-12-23 03:40 | NUR ---
NO ACUTE CHANGES OR SIGNIFICANT EVENTS NOTED OVERNIGHT.
[2020-12-23 04:42] LABS: Hematocrit 28.1 % (33.0-51.0); Hemoglobin 9.3 g/dL (11.5-16.0); Mean Corpuscular HGB 27.8 pg (26.0-34.0); Mean Corpuscular HGB Conc 33.1 g/dL (31.5-36.5); Mean Corpuscular Volume 84 fL (80-100); Mean Platelet Volume 11.1 fL (9.1-12.4); Platelet Count 193 K/mm3 (150-400); RDW Coefficient Variation 13.5 % (11.7-14.2); RDW Standard Deviation 41.8 fL (35.1-46.3); Red Blood Cell Count 3.35 M/mm3 (3.80-5.20); White Blood Cell Count 5.27 K/mm3 (4.00-11.30)
[2020-12-23 05:03] LABS: Albumin, Blood 2.7 g/dL (3.4-5.0); Albumin/Globulin Ratio 0.9 (0.8-1.8); Bilirubin, Total 0.4 mg/dL (0.1-1.0); Bun/Creatinine Ratio 29.2 (12.0-20.0); Calcium, Blood 7.6 mg/dL (8.5-10.1); Creatinine, Blood 1.2 mg/dL (0.40-1.00); Globulin, Blood 3.1 g/dL (2.2-4.0); Potassium, Blood 3.5 mmol/L (3.5-5.5); Total Protein, Blood 5.8 g/dL (6.4-8.2)
--- NOTE | 2020-12-23 18:48 | NUR ---
PT IS ALERT ORIENTED TO SELF,PT IS CONFUSED,PT HAVE P[place], PT DENIES PAIN, N/V,SOB, NO ACUTE CHANGES, PT IS IN BED, BED IN LOW POSITON CALL LIGHT WITHIN REACH WILL CONTINUE TO MONITOR.
[2020-12-24] MEDS ORDERED: OMEP20ER PO (03:11)
--- NOTE | 2020-12-24 03:31 | NUR ---
PROFESSOR SCULPTURE SUMMARY HAS BEEN RESTING QUIETLY WITH FEW INTERRUPTIONS SINCE HS. THOSE INTERRUPTIONS INCLUDED INCONT OF URINE AND CHANGING HER LINEN. IV ANTIBIOTICS ADMINISTERED PER JUN. LUNG SOUNDS SLIGHT WHEEZE IN BACK LOWER LOBES PER AUSCULTATION. SOMEWHAT CONFUSED IN ANSWERING QUESTIONS ASKED. CALL LIGHT IN REACH. ISOLATOIN PRECAUTIONS MAINTAINED
[2020-12-24 05:19] LABS: Hematocrit 27.8 % (33.0-51.0); Hemoglobin 8.8 g/dL (11.5-16.0); Mean Corpuscular HGB 27.2 pg (26.0-34.0); Mean Corpuscular HGB Conc 31.7 g/dL (31.5-36.5); Mean Corpuscular Volume 86 fL (80-100); Mean Platelet Volume 11.2 fL (9.1-12.4); Platelet Count 164 K/mm3 (150-400); RDW Coefficient Variation 13.5 % (11.7-14.2); RDW Standard Deviation 42.8 fL (35.1-46.3); Red Blood Cell Count 3.24 M/mm3 (3.80-5.20); White Blood Cell Count 4.34 K/mm3 (4.00-11.30)
[2020-12-24 05:47] LABS: Alanine Aminotransfer (ALT/SGP <6 U/L (12-78); Albumin, Blood 2.7 g/dL (3.4-5.0); Albumin/Globulin Ratio 0.8 (0.8-1.8); Alk Phos 105 U/L (50-136); Anion Gap 3 mmol/L (6-16); Aspartate Aminotrans (AST/SGOT 4 U/L (12-37); Bilirubin, Total 0.4 mg/dL (0.1-1.0); Blood Urea Nitrogen 39 mg/dL (8-24); CO2, Blood 28 mmol/L (21-32); Calcium, Blood 8.4 mg/dL (8.5-10.1); Chloride, Blood 105 mmol/L (98-108); Globulin, Blood 3.2 g/dL (2.2-4.0); Glomerular Filtration Rate 40 (60-); Glucose, Blood 81 mg/dL (70-99); Potassium, Blood 3.7 mmol/L (3.5-5.5); Sodium, Blood 136 mmol/L (136-145); Total Protein, Blood 5.9 g/dL (6.4-8.2)
[2020-12-24] MEDS ORDERED: CIPR500 PO (09:58)
--- NOTE | 2020-12-24 14:14 | NUR ---
PT IS ALERT ORIENTED TO SLEF,PT FEED HERSELF BREAKFAST THIS AM,TOOK ALL MEDS WHOLE WITH APPLESAUCE,PT IS VERY PLEASANT AND TALKATIVE TO STAFF.PT IS INCONTINENT,[facility] DAUGHTER.
== END 2020-12-24 11:23 | disposition home or self-care (01) ==
LOC: ER 18:45 → MEDS 18:46
PROVIDERS: Emergency Medicine; Internal Medicine; ADMIT Internal Medicine
DX: D25.9 Leiomyoma of uterus, unspecified (principal); U07.1 COVID-19; J12.82 Pneumonia due to coronavirus disease 2019; N39.0 Urinary tract infection, site not specified; B96.20 Unspecified Escherichia coli [E. coli] as the cause of diseases classified elsewhere; E87.6 Hypokalemia; D64.9 Anemia, unspecified; E83.42 Hypomagnesemia; K59.00 Constipation, unspecified; E11.9 Type 2 diabetes mellitus without complications; I10 Essential (primary) hypertension; I25.10 Atherosclerotic heart disease of native coronary artery without angina pectoris; G20 Parkinson's disease; F02.80 Dementia in other diseases classified elsewhere, unspecified severity, without behavioral disturbance, psychotic disturbance, mood disturbance, and anxiety; E03.9 Hypothyroidism, unspecified; K21.9 Gastro-esophageal reflux disease without esophagitis; F32.9 Major depressive disorder, single episode, unspecified; Z87.891 Personal history of nicotine dependence; Z88.0 Allergy status to penicillin; Z88.2 Allergy status to sulfonamides
CPT/HCPCS: 36415; 80048; 80053; 81001; 82947; 83690; 83735; 84443; 85025; 85027; 85379; 85651; 86140; 87077; 87086; 87186; 93005; 93010; 96365; 99285-25; A9270; J0696; J1650; J2405; J2550; J3475; J3480; J7120; U0004

== ENCOUNTER 2021-03-19 20:13 | Emergency (ER) | payer MEDICARE, OTHER ==
[~2021-03-19] VITALS: Ht 152.4 cm; Wt 59.0 kg
[~2021-03-19 20:13] MED LIST changes: +CIPR500 PO; +FUROSEMIDE20 MG PO; +ISOSORBIDE MONO30 MG PO; +ZOLOFT50 MG PO
[2021-03-19 21:30] LABS: Source, Urine Clean Catch
[2021-03-19 21:36] LABS: Blood, Urine 5+ (Neg); Glucose Qualitative, Urine Neg (Neg); Ketones, Urine 2+ (Neg); Leukocyte Esterase, Urine 3+ (Neg); Nitrite, Urine Neg (Neg); Protein, Urine 4+ (Neg); Specific Gravity, Urine 1.025 (1.003-1.022); Urobilinogen, Urine 2+ (Normal)
[2021-03-19 21:44] LABS: Appearance, Urine Cloudy (Clear); Bilirubin, Urine 1+ (Neg); Color, Urine Yellow (P-Yellow)
[2021-03-19 21:45] LABS: Amorphous Light (0-Heavy); Bacteria Many /hpf; Red Blood Cells, Urine 25-50 /hpf (0-2); Squamous Epithelial Cells Few /hpf (Few); White Blood Cells, Urine TNTC /hpf (0-5)
[2021-03-19] MEDS ORDERED: ONDA4ODT MM (22:04)
[2021-03-19] MEDS ORDERED: CEFP200 PO (22:04)
== END 2021-03-19 23:45 | disposition home or self-care (01) ==
LOC: ER 20:13
PROVIDERS: Emergency Medicine
DX: N39.0 Urinary tract infection, site not specified (principal); E11.9 Type 2 diabetes mellitus without complications; I25.2 Old myocardial infarction; I10 Essential (primary) hypertension; I48.91 Unspecified atrial fibrillation; G20 Parkinson's disease; Z87.891 Personal history of nicotine dependence
CPT/HCPCS: 51701; 81001; 87077; 87086; 87186; 99283-25; A9270

== ENCOUNTER 2021-03-22 19:15 | Emergency (ER) | payer MEDICARE, OTHER ==
[~2021-03-22] VITALS: Ht 157.5 cm; Wt 68.0 kg
[~2021-03-22 19:15] MED LIST changes: +CEFP200 PO; +ONDA4ODT MM
[2021-03-22 20:06] LABS: BASOPHILS ABSOLUTE AUTO 0.04 K/mm3 (0.00-0.23); BASOPHILS PERCENT AUTO 0 % (0-2); EOSINOPHILS ABSOLUTE AUTO 0.01 K/mm3 (0.00-0.68); EOSINOPHILS PERCENT AUTO 0 % (0-6); Hematocrit 40.7 % (33.0-51.0); Hemoglobin 13.3 g/dL (11.5-16.0); IMMATURE GRAN ABSOLUTE AUTO 0.08 K/mm3 (0.00-0.10); IMMATURE GRAN PERCENT AUTO 1 % (0-1); LYMPHOCYTES PERCENT AUTO 18 % (21-46); MONOCYTES ABSOLUTE AUTO 0.22 K/mm3 (0.16-1.47); MONOCYTES PERCENT AUTO 2 % (4-13); Mean Corpuscular HGB 28.5 pg (26.0-34.0); Mean Corpuscular HGB Conc 32.7 g/dL (31.5-36.5); Mean Corpuscular Volume 87 fL (80-100); NEUTROPHILS PERCENT AUTO 78 % (41-73); Platelet Count 311 K/mm3 (150-400); RDW Coefficient Variation 12.7 % (11.7-14.2); RDW Standard Deviation 40.4 fL (35.1-46.3); Red Blood Cell Count 4.67 M/mm3 (3.80-5.20); White Blood Cell Count 9.35 K/mm3 (4.00-11.30)
[2021-03-22 20:37] LABS: Alanine Aminotransfer (ALT/SGP 8 U/L (12-78); Albumin, Blood 3.1 g/dL (3.4-5.0); Albumin/Globulin Ratio 0.8 (0.8-1.8); Alk Phos 115 U/L (50-136); Anion Gap 12 mmol/L (6-16); Aspartate Aminotrans (AST/SGOT 13 U/L (12-37); Bilirubin, Total 0.5 mg/dL (0.1-1.0); Blood Urea Nitrogen 13 mg/dL (8-24); Bun/Creatinine Ratio 17.9 (12.0-20.0); CO2, Blood 27 mmol/L (21-32); Calcium, Blood 8.7 mg/dL (8.5-10.1); Chloride, Blood 97 mmol/L (98-108); Creatinine, Blood 0.73 mg/dL (0.40-1.00); Globulin, Blood 3.7 g/dL (2.2-4.0); Glomerular Filtration Rate >60 (60-); Glucose, Blood 112 mg/dL (70-99); Potassium, Blood 4.1 mmol/L (3.5-5.5); Sodium, Blood 136 mmol/L (136-145); Total Protein, Blood 6.8 g/dL (6.4-8.2)
[2021-03-22] MEDS ORDERED: PROC5 PO (22:43)
== END 2021-03-22 23:40 | disposition home or self-care (01) ==
LOC: ER 19:15
PROVIDERS: Emergency Medicine
DX: N39.0 Urinary tract infection, site not specified (principal); E11.9 Type 2 diabetes mellitus without complications; I10 Essential (primary) hypertension; I25.2 Old myocardial infarction; I48.91 Unspecified atrial fibrillation; G20 Parkinson's disease; Z88.0 Allergy status to penicillin; Z88.2 Allergy status to sulfonamides; Z79.82 Long term (current) use of aspirin; Z79.899 Other long term (current) drug therapy
CPT/HCPCS: 36415; 80053; 83690; 85025; 93005; 93010; 96365; 99284-25; J0696; J0780; Q0164

== ENCOUNTER 2021-05-03 20:35 | Emergency (ER) | payer MEDICARE, OTHER ==
[~2021-05-03] VITALS: Ht 152.4 cm; Wt 72.6 kg
[~2021-05-03 20:35] MED LIST changes: +ANTIFUNGAL30 GM TOP; +FLUC150A PO; +PROC5 PO
[2021-05-03 21:27] LABS: Source, Urine Straight Cath
[2021-05-03 21:34] LABS: BASOPHILS ABSOLUTE AUTO 0.04 K/mm3 (0.00-0.23); BASOPHILS PERCENT AUTO 1 % (0-2); EOSINOPHILS ABSOLUTE AUTO 0.16 K/mm3 (0.00-0.68); EOSINOPHILS PERCENT AUTO 2 % (0-6); Hematocrit 32.2 % (33.0-51.0); Hemoglobin 10.2 g/dL (11.5-16.0); IMMATURE GRAN ABSOLUTE AUTO 0.03 K/mm3 (0.00-0.10); IMMATURE GRAN PERCENT AUTO 0 % (0-1); LYMPHOCYTES ABSOLUTE AUTO 1.61 K/mm3 (0.84-5.20); LYMPHOCYTES PERCENT AUTO 21 % (21-46); MONOCYTES ABSOLUTE AUTO 0.32 K/mm3 (0.16-1.47); MONOCYTES PERCENT AUTO 4 % (4-13); Mean Corpuscular HGB 28.7 pg (26.0-34.0); Mean Corpuscular HGB Conc 31.7 g/dL (31.5-36.5); Mean Corpuscular Volume 91 fL (80-100); NEUTROPHILS PERCENT AUTO 73 % (41-73); Platelet Count 183 K/mm3 (150-400); RDW Coefficient Variation 13.6 % (11.7-14.2); Red Blood Cell Count 3.55 M/mm3 (3.80-5.20); White Blood Cell Count 7.86 K/mm3 (4.00-11.30)
[2021-05-03 21:40] LABS: Appearance, Urine Clear (Clear); Bilirubin, Urine Neg (Neg); Blood, Urine 1+ (Neg); Color, Urine Yellow (P-Yellow); Glucose Qualitative, Urine Neg (Neg); Ketones, Urine Neg (Neg); Leukocyte Esterase, Urine 1+ (Neg); Nitrite, Urine Neg (Neg); Protein, Urine 1+ (Neg); Specific Gravity, Urine 1.015 (1.003-1.022); Urobilinogen, Urine NORM (Normal)
[2021-05-03 21:57] LABS: Alanine Aminotransfer (ALT/SGP 6 U/L (12-78); Albumin, Blood 2.9 g/dL (3.4-5.0); Albumin/Globulin Ratio 0.9 (0.8-1.8); Alk Phos 77 U/L (50-136); Anion Gap 7 mmol/L (6-16); Aspartate Aminotrans (AST/SGOT 9 U/L (12-37); Bilirubin, Total 0.4 mg/dL (0.1-1.0); Blood Urea Nitrogen 21 mg/dL (8-24); Bun/Creatinine Ratio 26.3 (12.0-20.0); CO2, Blood 26 mmol/L (21-32); Calcium, Blood 7.8 mg/dL (8.5-10.1); Chloride, Blood 109 mmol/L (98-108); Globulin, Blood 3.3 g/dL (2.2-4.0); Glomerular Filtration Rate >60 (60-); Glucose, Blood 136 mg/dL (70-99); Potassium, Blood 3.6 mmol/L (3.5-5.5); Sodium, Blood 142 mmol/L (136-145); Total Protein, Blood 6.2 g/dL (6.4-8.2)
[2021-05-03 21:59] LABS: Bacteria Few /hpf; Red Blood Cells, Urine Rare /hpf (0-2); Squamous Epithelial Cells Rare /hpf (Few); White Blood Cells, Urine 25-50 /hpf (0-5)
== END 2021-05-03 22:36 | disposition home or self-care (01) ==
LOC: ER 20:35
PROVIDERS: Emergency Medicine
DX: R11.2 Nausea with vomiting, unspecified (principal); E11.9 Type 2 diabetes mellitus without complications; I25.2 Old myocardial infarction; I10 Essential (primary) hypertension; I48.91 Unspecified atrial fibrillation; Z79.899 Other long term (current) drug therapy; W18.30XA Fall on same level, unspecified, initial encounter
CPT/HCPCS: 80053; 81001; 85025; 87077; 87086; 87186; 96374; 99284-25; J2405; P9612

== ENCOUNTER 2021-07-02 01:01 | Emergency (ER) | payer MEDICARE, OTHER ==
[~2021-07-02] VITALS: Ht 152.4 cm; Wt 62.6 kg
[~2021-07-02 01:01] MED LIST changes: +ATOR20 PO; +HYDCHL12.5 PO; +VISBIOME 112.51 EACH PO
== END 2021-07-02 07:09 | disposition home or self-care (01) ==
LOC: ER 01:01
DX: S01.01XA Laceration without foreign body of scalp, initial encounter (principal); W01.10XA Fall on same level from slipping, tripping and stumbling with subsequent striking against unspecified object, initial encounter; Z88.0 Allergy status to penicillin; Z88.2 Allergy status to sulfonamides; Z79.899 Other long term (current) drug therapy; Z79.84 Long term (current) use of oral hypoglycemic drugs; Z79.82 Long term (current) use of aspirin; I25.2 Old myocardial infarction; I10 Essential (primary) hypertension; I48.91 Unspecified atrial fibrillation; G20 Parkinson's disease; Z87.891 Personal history of nicotine dependence
CPT/HCPCS: 70450; 72125

== ENCOUNTER → 2021-08-16 | Outpatient (CLI) | payer MEDICARE, OTHER ==
[2021-08-16 15:24] LABS: Appearance, Urine Cloudy (Clear); Bilirubin, Urine Neg (Neg); Blood, Urine 3+ (Neg); Glucose Qualitative, Urine Neg (Neg); Ketones, Urine Neg (Neg); Leukocyte Esterase, Urine 3+ (Neg); Nitrite, Urine Neg (Neg); Protein, Urine 3+ (Neg); Urobilinogen, Urine NORM (Normal); pH, Urine 6.5 (5.0-8.0)
[2021-08-16 15:34] LABS: Color, Urine Pale Yellow (P-Yellow)
[2021-08-16 15:35] LABS: White Blood Cells, Urine TNTC /hpf (0-5)
[2021-08-16 15:36] LABS: Bacteria Mod /hpf; Squamous Epithelial Cells Rare /hpf (Few)
== END | disposition home or self-care (01) ==
LOC: LAB SHORT 11:10 → LAB 11:10
PROVIDERS: Family Medicine
DX: N39.0 Urinary tract infection, site not specified (principal)
CPT/HCPCS: 81001; 87077; 87086; 87186

== ENCOUNTER 2021-10-01 03:18 | Emergency (ER) | payer MEDICARE, OTHER ==
[~2021-10-01] VITALS: Ht 160 cm; Wt 79.4 kg
[2021-10-01 04:18] LABS: BASOPHILS ABSOLUTE AUTO 0.04 K/mm3 (0.00-0.23); BASOPHILS PERCENT AUTO 0 % (0-2); EOSINOPHILS ABSOLUTE AUTO 0.25 K/mm3 (0.00-0.68); EOSINOPHILS PERCENT AUTO 2 % (0-6); Hematocrit 32.9 % (33.0-51.0); Hemoglobin 10.4 g/dL (11.5-16.0); IMMATURE GRAN ABSOLUTE AUTO 0.06 K/mm3 (0.00-0.10); IMMATURE GRAN PERCENT AUTO 1 % (0-1); LYMPHOCYTES PERCENT AUTO 24 % (21-46); MONOCYTES ABSOLUTE AUTO 0.67 K/mm3 (0.16-1.47); MONOCYTES PERCENT AUTO 6 % (4-13); Mean Corpuscular HGB 28.3 pg (26.0-34.0); Mean Corpuscular HGB Conc 31.6 g/dL (31.5-36.5); Mean Corpuscular Volume 90 fL (80-100); Mean Platelet Volume 9.9 fL (9.1-12.4); NEUTROPHILS ABSOLUTE AUTO 7.11 K/mm3 (1.96-9.15); NEUTROPHILS PERCENT AUTO 66 % (41-73); Platelet Count 188 K/mm3 (150-400); RDW Coefficient Variation 13.2 % (11.7-14.2); RDW Standard Deviation 43.7 fL (35.1-46.3); Red Blood Cell Count 3.67 M/mm3 (3.80-5.20); White Blood Cell Count 10.73 K/mm3 (4.00-11.30)
[2021-10-01 04:38] LABS: CPK Creatine Kinase 113 U/L (26-193)
[2021-10-01 05:02] LABS: Alanine Aminotransfer (ALT/SGP <6 U/L (12-78); Albumin, Blood 3.4 g/dL (3.4-5.0); Albumin/Globulin Ratio 0.9 (0.8-1.8); Alk Phos 116 U/L (50-136); Anion Gap 6 mmol/L (6-16); Aspartate Aminotrans (AST/SGOT 11 U/L (12-37); Bilirubin, Total 0.3 mg/dL (0.1-1.0); Blood Urea Nitrogen 36 mg/dL (8-24); Bun/Creatinine Ratio 31.6 (12.0-20.0); CO2, Blood 29 mmol/L (21-32); Calcium, Blood 8.6 mg/dL (8.5-10.1); Chloride, Blood 105 mmol/L (98-108); Creatine Kinase MB <1.0 ng/mL (0.0-3.6); Creatine Kinase MB Index Unable to Calculate (0.0-4.0); Creatinine, Blood 1.14 mg/dL (0.40-1.00); Globulin, Blood 3.6 g/dL (2.2-4.0); Glomerular Filtration Rate 49 (60-); Glucose, Blood 109 mg/dL (70-99); Potassium, Blood 4.4 mmol/L (3.5-5.5); Sodium, Blood 140 mmol/L (136-145)
== END 2021-10-01 08:06 | disposition home or self-care (01) ==
LOC: ER 03:18
PROVIDERS: Emergency Medicine
DX: S80.02XA Contusion of left knee, initial encounter (principal); S80.01XA Contusion of right knee, initial encounter; S09.90XA Unspecified injury of head, initial encounter; M19.012 Primary osteoarthritis, left shoulder; M19.011 Primary osteoarthritis, right shoulder; G20 Parkinson's disease; E11.9 Type 2 diabetes mellitus without complications; I25.2 Old myocardial infarction; I48.91 Unspecified atrial fibrillation; N28.9 Disorder of kidney and ureter, unspecified; Z87.891 Personal history of nicotine dependence; Z95.5 Presence of coronary angioplasty implant and graft; Z79.899 Other long term (current) drug therapy; Z79.82 Long term (current) use of aspirin; Z79.84 Long term (current) use of oral hypoglycemic drugs; Z88.0 Allergy status to penicillin; Z88.2 Allergy status to sulfonamides; W19.XXXA Unspecified fall, initial encounter; Y92.099 Unspecified place in other non-institutional residence as the place of occurrence of the external cause
CPT/HCPCS: 70450; 73030; 80053; 82550; 82553; 85025

== ENCOUNTER 2022-01-24 14:09 | Emergency (ER) | payer MEDICARE, OTHER ==
[~2022-01-24] VITALS: Ht 172.7 cm; Wt 81.7 kg
[2022-01-24 14:39] LABS: BASOPHILS ABSOLUTE AUTO 0.02 K/mm3 (0.00-0.23); BASOPHILS PERCENT AUTO 0 % (0-2); EOSINOPHILS ABSOLUTE AUTO 0.26 K/mm3 (0.00-0.68); EOSINOPHILS PERCENT AUTO 3 % (0-6); Hematocrit 31.7 % (33.0-51.0); IMMATURE GRAN ABSOLUTE AUTO 0.03 K/mm3 (0.00-0.10); IMMATURE GRAN PERCENT AUTO 0 % (0-1); LYMPHOCYTES ABSOLUTE AUTO 2.66 K/mm3 (0.84-5.20); LYMPHOCYTES PERCENT AUTO 27 % (21-46); MONOCYTES ABSOLUTE AUTO 0.64 K/mm3 (0.16-1.47); MONOCYTES PERCENT AUTO 7 % (4-13); Mean Corpuscular HGB 28.4 pg (26.0-34.0); Mean Corpuscular HGB Conc 31.5 g/dL (31.5-36.5); Mean Corpuscular Volume 90 fL (80-100); Mean Platelet Volume 9.6 fL (9.1-12.4); NEUTROPHILS ABSOLUTE AUTO 6.25 K/mm3 (1.96-9.15); NEUTROPHILS PERCENT AUTO 63 % (41-73); Platelet Count 201 K/mm3 (150-400); RDW Coefficient Variation 14.2 % (11.7-14.2); RDW Standard Deviation 46.4 fL (35.1-46.3); Red Blood Cell Count 3.52 M/mm3 (3.80-5.20); White Blood Cell Count 9.86 K/mm3 (4.00-11.30)
[2022-01-24 15:00] LABS: Albumin, Blood 3.3 g/dL (3.4-5.0); Bilirubin, Total 0.3 mg/dL (0.1-1.0); Bun/Creatinine Ratio 31.1 (12.0-20.0); Calcium, Blood 8.5 mg/dL (8.5-10.1); Creatinine, Blood 1.22 mg/dL (0.40-1.00); Globulin, Blood 3.2 g/dL (2.2-4.0); Potassium, Blood 4.5 mmol/L (3.5-5.5); Total Protein, Blood 6.5 g/dL (6.4-8.2)
[2022-01-24] MEDS ORDERED: LIDO700A20 TOP (16:17)
== END 2022-01-24 16:39 | disposition home or self-care (01) ==
LOC: ER 14:09
PROVIDERS: Student in an Organized Health Care Education/Training Program
DX: G89.29 Other chronic pain (principal); M54.6 Pain in thoracic spine; M25.511 Pain in right shoulder; M25.512 Pain in left shoulder; E11.9 Type 2 diabetes mellitus without complications; I25.2 Old myocardial infarction; I48.91 Unspecified atrial fibrillation; Z88.0 Allergy status to penicillin; Z88.2 Allergy status to sulfonamides; Z87.891 Personal history of nicotine dependence
CPT/HCPCS: 36415; 71045; 71275; 80053; 83690; 84484; 85025; 93005; 93010; 96374; 96375; 99284-25; A9270; J2270; J2405; Q9967

== ENCOUNTER 2022-01-26 18:26 | Emergency (ER) | payer MEDICARE, OTHER ==
[~2022-01-26] VITALS: Ht 152.4 cm; Wt 68.0 kg
[~2022-01-26 18:26] MED LIST changes: +LIDO700A20 TOP
[2022-01-26 19:13] LABS: BASOPHILS ABSOLUTE AUTO 0.02 K/mm3 (0.00-0.23); BASOPHILS PERCENT AUTO 0 % (0-2); EOSINOPHILS ABSOLUTE AUTO 0.14 K/mm3 (0.00-0.68); EOSINOPHILS PERCENT AUTO 1 % (0-6); Hemoglobin 9.3 g/dL (11.5-16.0); IMMATURE GRAN ABSOLUTE AUTO 0.05 K/mm3 (0.00-0.10); IMMATURE GRAN PERCENT AUTO 0 % (0-1); LYMPHOCYTES ABSOLUTE AUTO 1.76 K/mm3 (0.84-5.20); LYMPHOCYTES PERCENT AUTO 15 % (21-46); MONOCYTES ABSOLUTE AUTO 0.78 K/mm3 (0.16-1.47); MONOCYTES PERCENT AUTO 7 % (4-13); Mean Corpuscular HGB 28.6 pg (26.0-34.0); Mean Corpuscular HGB Conc 32.1 g/dL (31.5-36.5); Mean Corpuscular Volume 89 fL (80-100); Mean Platelet Volume 9.7 fL (9.1-12.4); NEUTROPHILS ABSOLUTE AUTO 8.92 K/mm3 (1.96-9.15); NEUTROPHILS PERCENT AUTO 76 % (41-73); Platelet Count 203 K/mm3 (150-400); RDW Coefficient Variation 14.2 % (11.7-14.2); RDW Standard Deviation 46.1 fL (35.1-46.3); Red Blood Cell Count 3.25 M/mm3 (3.80-5.20); White Blood Cell Count 11.67 K/mm3 (4.00-11.30)
[2022-01-26 19:25] LABS: Albumin/Globulin Ratio 0.8 (0.8-1.8); Bilirubin, Total 0.4 mg/dL (0.1-1.0); Bun/Creatinine Ratio 35.9 (12.0-20.0); Creatinine, Blood 1.42 mg/dL (0.40-1.00); Globulin, Blood 3.6 g/dL (2.2-4.0); Potassium, Blood 4.5 mmol/L (3.5-5.5); Total Protein, Blood 6.6 g/dL (6.4-8.2)
[2022-01-26 19:46] LABS: Source, Urine Straight Cath
[2022-01-26 19:49] LABS: Appearance, Urine Clear (Clear); Bilirubin, Urine Neg (Neg); Blood, Urine 3+ (Neg); Color, Urine Yellow (P-Yellow); Glucose Qualitative, Urine Neg (Neg); Ketones, Urine Neg (Neg); Leukocyte Esterase, Urine Neg (Neg); Nitrite, Urine Neg (Neg); Protein, Urine 2+ (Neg); Specific Gravity, Urine 1.015 (1.003-1.022); Urobilinogen, Urine NORM (Normal)
[2022-01-26 19:56] LABS: Bacteria Many /hpf; Hyaline Casts 0-2 /lpf (0-2); Squamous Epithelial Cells Few /hpf (Few)
[2022-01-26] MEDS ORDERED: LEVFLO500 PO (20:47)
== END 2022-01-26 22:38 | disposition home or self-care (01) ==
LOC: ER 18:26
PROVIDERS: Emergency Medicine
DX: J18.9 Pneumonia, unspecified organism (principal); F03.90 Unspecified dementia, unspecified severity, without behavioral disturbance, psychotic disturbance, mood disturbance, and anxiety; G20 Parkinson's disease; Z88.0 Allergy status to penicillin; Z88.2 Allergy status to sulfonamides; E11.9 Type 2 diabetes mellitus without complications; Z95.5 Presence of coronary angioplasty implant and graft; Z87.891 Personal history of nicotine dependence
CPT/HCPCS: 51701; 70450; 71045; 80053; 81001; 85025; 87086; 96365-59; 99284-25; J0696

== ENCOUNTER → 2022-05-23 | Outpatient (CLI) | payer MEDICARE, OTHER ==
[~2022-05-23] MED LIST changes: +LEVFLO500 PO
[2022-05-23 12:41] LABS: BASOPHILS ABSOLUTE AUTO 0.05 K/mm3 (0.00-0.23); BASOPHILS PERCENT AUTO 0 % (0-2); EOSINOPHILS ABSOLUTE AUTO 0.01 K/mm3 (0.00-0.68); EOSINOPHILS PERCENT AUTO 0 % (0-6); Hematocrit 32.4 % (33.0-51.0); Hemoglobin 10.5 g/dL (11.5-16.0); IMMATURE GRAN ABSOLUTE AUTO 0.13 K/mm3 (0.00-0.10); IMMATURE GRAN PERCENT AUTO 1 % (0-1); LYMPHOCYTES ABSOLUTE AUTO 1.48 K/mm3 (0.84-5.20); LYMPHOCYTES PERCENT AUTO 7 % (21-46); MONOCYTES ABSOLUTE AUTO 0.83 K/mm3 (0.16-1.47); MONOCYTES PERCENT AUTO 4 % (4-13); Mean Corpuscular HGB 27.1 pg (26.0-34.0); Mean Corpuscular HGB Conc 32.4 g/dL (31.5-36.5); Mean Corpuscular Volume 84 fL (80-100); Mean Platelet Volume 10.6 fL (9.1-12.4); NEUTROPHILS ABSOLUTE AUTO 19.97 K/mm3 (1.96-9.15); NEUTROPHILS PERCENT AUTO 89 % (41-73); Platelet Count 229 K/mm3 (150-400); RDW Coefficient Variation 14.5 % (11.7-14.2); RDW Standard Deviation 44.2 fL (35.1-46.3); Red Blood Cell Count 3.87 M/mm3 (3.80-5.20); White Blood Cell Count 22.47 K/mm3 (4.00-11.30)
[2022-05-23 13:09] LABS: Albumin, Blood 2.8 g/dL (3.4-5.0); Albumin/Globulin Ratio 0.7 (0.8-1.8); Bilirubin, Total 0.4 mg/dL (0.1-1.0); Bun/Creatinine Ratio 29.5 (12.0-20.0); Calcium, Blood 7.8 mg/dL (8.5-10.1); Creatinine, Blood 1.22 mg/dL (0.40-1.00); Total Protein, Blood 6.8 g/dL (6.4-8.2)
== END | disposition home or self-care (01) ==
LOC: LAB SHORT 11:00
PROVIDERS: Family Medicine
DX: N18.32 Chronic kidney disease, stage 3b (principal)
CPT/HCPCS: 80053; 85025

== ENCOUNTER → 2022-06-04 | Outpatient (CLI) | payer MEDICARE, OTHER ==
[2022-06-04 13:40] LABS: BASOPHILS ABSOLUTE AUTO 0.06 K/mm3 (0.00-0.23); BASOPHILS PERCENT AUTO 0 % (0-2); EOSINOPHILS ABSOLUTE AUTO 0.21 K/mm3 (0.00-0.68); EOSINOPHILS PERCENT AUTO 2 % (0-6); Hematocrit 38.3 % (33.0-51.0); Hemoglobin 11.8 g/dL (11.5-16.0); IMMATURE GRAN PERCENT AUTO 1 % (0-1); LYMPHOCYTES ABSOLUTE AUTO 2.28 K/mm3 (0.84-5.20); LYMPHOCYTES PERCENT AUTO 16 % (21-46); MONOCYTES PERCENT AUTO 4 % (4-13); Mean Corpuscular HGB 26.3 pg (26.0-34.0); Mean Corpuscular HGB Conc 30.8 g/dL (31.5-36.5); Mean Corpuscular Volume 86 fL (80-100); NEUTROPHILS ABSOLUTE AUTO 10.88 K/mm3 (1.96-9.15); NEUTROPHILS PERCENT AUTO 78 % (41-73); Platelet Count 319 K/mm3 (150-400); RDW Coefficient Variation 14.5 % (11.7-14.2); RDW Standard Deviation 44.9 fL (35.1-46.3); Red Blood Cell Count 4.48 M/mm3 (3.80-5.20); White Blood Cell Count 14.03 K/mm3 (4.00-11.30)
== END | disposition home or self-care (01) ==
LOC: LAB 10:30 → LAB SHORT 10:30
PROVIDERS: Family Medicine
DX: R79.9 Abnormal finding of blood chemistry, unspecified (principal)
CPT/HCPCS: 85025

== ENCOUNTER → 2022-06-27 | Outpatient (CLI) | payer MEDICARE, OTHER ==
[2022-06-27 13:45] LABS: BASOPHILS ABSOLUTE AUTO 0.02 K/mm3 (0.00-0.23); BASOPHILS PERCENT AUTO 0 % (0-2); EOSINOPHILS ABSOLUTE AUTO 0.27 K/mm3 (0.00-0.68); EOSINOPHILS PERCENT AUTO 5 % (0-6); Hematocrit 32.6 % (33.0-51.0); Hemoglobin 10.2 g/dL (11.5-16.0); IMMATURE GRAN ABSOLUTE AUTO 0.02 K/mm3 (0.00-0.10); IMMATURE GRAN PERCENT AUTO 0 % (0-1); LYMPHOCYTES ABSOLUTE AUTO 2.24 K/mm3 (0.84-5.20); LYMPHOCYTES PERCENT AUTO 38 % (21-46); MONOCYTES PERCENT AUTO 5 % (4-13); Mean Corpuscular HGB 26.7 pg (26.0-34.0); Mean Corpuscular HGB Conc 31.3 g/dL (31.5-36.5); Mean Corpuscular Volume 85 fL (80-100); Mean Platelet Volume 10.5 fL (9.1-12.4); NEUTROPHILS ABSOLUTE AUTO 3.07 K/mm3 (1.96-9.15); NEUTROPHILS PERCENT AUTO 52 % (41-73); Platelet Count 176 K/mm3 (150-400); RDW Coefficient Variation 14.6 % (11.7-14.2); RDW Standard Deviation 45.8 fL (35.1-46.3); Red Blood Cell Count 3.82 M/mm3 (3.80-5.20); White Blood Cell Count 5.92 K/mm3 (4.00-11.30)
[2022-06-27 16:18] LABS: Iron Serum 33 ug/dL (50-170); Percent Saturation 13.5 % (15.0-50.0); Total Iron Binding Capacity 245 ug/dL (250-450)
[2022-06-27 16:21] LABS: Albumin, Blood 2.7 g/dL (3.4-5.0); Anion Gap 5 mmol/L (6-16); Blood Urea Nitrogen 21 mg/dL (8-24); Bun/Creatinine Ratio 23.6 (12.0-20.0); CO2, Blood 28 mmol/L (21-32); Calcium, Blood 8.1 mg/dL (8.5-10.1); Chloride, Blood 106 mmol/L (98-108); Creatinine, Blood 0.89 mg/dL (0.40-1.00); Ferritin, Serum 40 ng/mL (8-252); Glomerular Filtration Rate 66 (60-); Glucose, Blood 168 mg/dL (70-99); Phosphorus, Blood 3.1 mg/dL (2.5-4.9); Potassium, Blood 3.9 mmol/L (3.5-5.5); Sodium, Blood 139 mmol/L (136-145)
== END | disposition home or self-care (01) ==
LOC: LAB SHORT 10:50 → LAB 10:50
PROVIDERS: Internal Medicine Nephrology
DX: N17.9 Acute kidney failure, unspecified (principal); N18.9 Chronic kidney disease, unspecified; D63.1 Anemia in chronic kidney disease
CPT/HCPCS: 80069; 82728; 83540; 83550; 85025

== ENCOUNTER 2022-07-08 12:24 | Emergency (ER) | payer MEDICARE, OTHER ==
[~2022-07-08] VITALS: Ht 147.3 cm; Wt 54.4 kg
== END 2022-07-08 16:32 | disposition home or self-care (01) ==
LOC: ER 12:24
DX: S09.90XA Unspecified injury of head, initial encounter (principal); E11.9 Type 2 diabetes mellitus without complications; I25.2 Old myocardial infarction; G20 Parkinson's disease; W19.XXXA Unspecified fall, initial encounter; Z87.891 Personal history of nicotine dependence
CPT/HCPCS: 70450

== ENCOUNTER 2022-07-14 19:05 | Emergency (ER) | payer MEDICARE, OTHER ==
[~2022-07-14] VITALS: Ht 152.4 cm; Wt 68.0 kg
[2022-07-14 19:30] LABS: BASOPHILS ABSOLUTE AUTO 0.04 K/mm3 (0.00-0.23); BASOPHILS PERCENT AUTO 0 % (0-2); EOSINOPHILS PERCENT AUTO 0 % (0-6); Hematocrit 38.6 % (33.0-51.0); Hemoglobin 12.4 g/dL (11.5-16.0); IMMATURE GRAN ABSOLUTE AUTO 0.24 K/mm3 (0.00-0.10); IMMATURE GRAN PERCENT AUTO 2 % (0-1); LYMPHOCYTES ABSOLUTE AUTO 2.25 K/mm3 (0.84-5.20); LYMPHOCYTES PERCENT AUTO 21 % (21-46); MONOCYTES ABSOLUTE AUTO 0.33 K/mm3 (0.16-1.47); MONOCYTES PERCENT AUTO 3 % (4-13); Mean Corpuscular HGB 26.5 pg (26.0-34.0); Mean Corpuscular HGB Conc 32.1 g/dL (31.5-36.5); Mean Corpuscular Volume 83 fL (80-100); Mean Platelet Volume 9.3 fL (9.1-12.4); NEUTROPHILS PERCENT AUTO 73 % (41-73); Platelet Count 386 K/mm3 (150-400); RDW Coefficient Variation 13.2 % (11.7-14.2); RDW Standard Deviation 39.8 fL (35.1-46.3); Red Blood Cell Count 4.68 M/mm3 (3.80-5.20); White Blood Cell Count 10.56 K/mm3 (4.00-11.30)
[2022-07-14 19:40] LABS: Albumin, Blood 3.2 g/dL (3.4-5.0); Albumin/Globulin Ratio 0.7 (0.8-1.8); Bilirubin, Total 0.6 mg/dL (0.1-1.0); Bun/Creatinine Ratio 29.8 (12.0-20.0); Calcium, Blood 8.8 mg/dL (8.5-10.1); Creatinine, Blood 0.87 mg/dL (0.40-1.00); Globulin, Blood 4.7 g/dL (2.2-4.0); Potassium, Blood 4.1 mmol/L (3.5-5.5); Total Protein, Blood 7.9 g/dL (6.4-8.2)
[2022-07-14 19:45] LABS: Source, Urine Straight Cath
[2022-07-14 19:47] LABS: Appearance, Urine Clear (Clear); Blood, Urine 2+ (Neg); Color, Urine Amber (P-Yellow); Glucose Qualitative, Urine Neg (Neg); Ketones, Urine 2+ (Neg); Leukocyte Esterase, Urine 2+ (Neg); Nitrite, Urine Neg (Neg); Protein, Urine 3+ (Neg); Specific Gravity, Urine 1.025 (1.003-1.022); Urobilinogen, Urine 2+ (Normal)
[2022-07-14 19:52] LABS: Bilirubin, Urine 2+ (Neg)
[2022-07-14 19:54] LABS: Bacteria Many /hpf; Granular Casts 0-2 /lpf (0); Squamous Epithelial Cells Mod /hpf (Few); Transitional Epithelial Cells Rare /hpf (0-Rare)
[2022-07-14] MEDS ORDERED: CEPH500 PO (21:39)
[2022-07-14] MEDS ORDERED: ONDA4ODT MM (21:39)
== END 2022-07-14 22:40 | disposition home or self-care (01) ==
LOC: ER 19:05
PROVIDERS: Emergency Medicine
DX: N39.0 Urinary tract infection, site not specified (principal); E11.9 Type 2 diabetes mellitus without complications; I25.2 Old myocardial infarction; G20 Parkinson's disease; Z87.891 Personal history of nicotine dependence; Z88.0 Allergy status to penicillin; Z88.2 Allergy status to sulfonamides
CPT/HCPCS: 36415; 74019; 80053; 81001; 83690; 85025; 87077; 87086; 87186; 93005; 93010; 96365; 96375; 99284-25; J0696; J2405

== ENCOUNTER 2022-07-23 18:02 | Inpatient (IN) | payer MEDICARE, OTHER ==
[~2022-07-23] VITALS: Ht 157.5 cm; Wt 66.0 kg
[~2022-07-23 18:02] MED LIST changes: +Aspir 8181 MG PO; +BUPR150ER PO; +CEPH500 PO; +EUTHYROX50 MCG PO; +OXYC10ER PO; +PREG100 PO; +QUET25 PO; +SERT50 PO
[2022-07-23 19:14] LABS: BASOPHILS ABSOLUTE AUTO 0.04 K/mm3 (0.00-0.23); BASOPHILS PERCENT AUTO 0 % (0-2); EOSINOPHILS ABSOLUTE AUTO 0.13 K/mm3 (0.00-0.68); EOSINOPHILS PERCENT AUTO 1 % (0-6); Hematocrit 32.9 % (33.0-51.0); Hemoglobin 10.8 g/dL (11.5-16.0); IMMATURE GRAN ABSOLUTE AUTO 0.04 K/mm3 (0.00-0.10); IMMATURE GRAN PERCENT AUTO 0 % (0-1); LYMPHOCYTES ABSOLUTE AUTO 2.38 K/mm3 (0.84-5.20); LYMPHOCYTES PERCENT AUTO 19 % (21-46); MONOCYTES ABSOLUTE AUTO 0.57 K/mm3 (0.16-1.47); MONOCYTES PERCENT AUTO 5 % (4-13); Mean Corpuscular HGB 26.2 pg (26.0-34.0); Mean Corpuscular HGB Conc 32.8 g/dL (31.5-36.5); Mean Corpuscular Volume 80 fL (80-100); Mean Platelet Volume 10.5 fL (9.1-12.4); NEUTROPHILS ABSOLUTE AUTO 9.57 K/mm3 (1.96-9.15); NEUTROPHILS PERCENT AUTO 75 % (41-73); Platelet Count 346 K/mm3 (150-400); RDW Coefficient Variation 13.2 % (11.7-14.2); RDW Standard Deviation 37.5 fL (35.1-46.3); Red Blood Cell Count 4.13 M/mm3 (3.80-5.20); White Blood Cell Count 12.73 K/mm3 (4.00-11.30)
[2022-07-23 19:35] LABS: Albumin, Blood 2.7 g/dL (3.4-5.0); Albumin/Globulin Ratio 0.6 (0.8-1.8); Bilirubin, Total 0.5 mg/dL (0.1-1.0); Bun/Creatinine Ratio 36.2 (12.0-20.0); Calcium, Blood 8.2 mg/dL (8.5-10.1); Creatinine, Blood 0.64 mg/dL (0.40-1.00); Globulin, Blood 4.3 g/dL (2.2-4.0); Potassium, Blood 5.2 mmol/L (3.5-5.5)
[2022-07-23 22:47] LABS: Source, Urine Straight Cath
[2022-07-23 23:11] LABS: Bilirubin, Urine Neg (Neg); Blood, Urine 2+ (Neg); Glucose Qualitative, Urine Neg (Neg); Ketones, Urine 2+ (Neg); Leukocyte Esterase, Urine 1+ (Neg); Nitrite, Urine Neg (Neg); Protein, Urine 3+ (Neg); Specific Gravity, Urine 1.025 (1.003-1.022); Urobilinogen, Urine 2+ (Normal)
[2022-07-23 23:21] LABS: Appearance, Urine Hazy (Clear); Color, Urine Yellow (P-Yellow)
[2022-07-23 23:24] LABS: Amorphous Mod (0-Heavy); Bacteria Few /hpf; Granular Casts 0-2 /lpf (0); Hyaline Casts 0-2 /lpf (0-2); Red Blood Cells, Urine 0-2 /hpf (0-2); Squamous Epithelial Cells Not Seen /hpf (Few)
[2022-07-24 01:29] VITALS: BP 143/66
[2022-07-24] MEDS ORDERED: CARBIDOPA-LEVO1 EAC9 PO (01:33)
[2022-07-24] MEDS ORDERED: CALCIUM CARBON500 M1 PO (02:26)
[2022-07-24] MEDS ORDERED: CARBLEV250 (02:31)
[2022-07-24] MEDS ORDERED: OXYC10TA19 PO (04:32)
[2022-07-24] MEDS ORDERED: POTA10T PO (04:35)
[2022-07-24 05:20] LABS: BASOPHILS ABSOLUTE AUTO 0.05 K/mm3 (0.00-0.23); BASOPHILS PERCENT AUTO 1 % (0-2); EOSINOPHILS ABSOLUTE AUTO 0.06 K/mm3 (0.00-0.68); EOSINOPHILS PERCENT AUTO 1 % (0-6); Hemoglobin 10.9 g/dL (11.5-16.0); IMMATURE GRAN ABSOLUTE AUTO 0.06 K/mm3 (0.00-0.10); IMMATURE GRAN PERCENT AUTO 1 % (0-1); LYMPHOCYTES ABSOLUTE AUTO 2.63 K/mm3 (0.84-5.20); LYMPHOCYTES PERCENT AUTO 25 % (21-46); MONOCYTES ABSOLUTE AUTO 0.62 K/mm3 (0.16-1.47); MONOCYTES PERCENT AUTO 6 % (4-13); Mean Corpuscular HGB 26.1 pg (26.0-34.0); Mean Corpuscular HGB Conc 32.1 g/dL (31.5-36.5); Mean Corpuscular Volume 82 fL (80-100); Mean Platelet Volume 10.7 fL (9.1-12.4); NEUTROPHILS ABSOLUTE AUTO 6.98 K/mm3 (1.96-9.15); NEUTROPHILS PERCENT AUTO 67 % (41-73); Platelet Count 351 K/mm3 (150-400); RDW Coefficient Variation 13.2 % (11.7-14.2); RDW Standard Deviation 39.3 fL (35.1-46.3); Red Blood Cell Count 4.17 M/mm3 (3.80-5.20)
[2022-07-24 05:22] VITALS: BP 143/63
[2022-07-24 05:50] LABS: Alanine Aminotransfer (ALT/SGP <6 U/L (12-78); Albumin/Globulin Ratio 0.8 (0.8-1.8); Alk Phos 133 U/L (50-136); Anion Gap 3 mmol/L (6-16); Aspartate Aminotrans (AST/SGOT 5 U/L (12-37); Bilirubin, Total 0.4 mg/dL (0.1-1.0); Blood Urea Nitrogen 22 mg/dL (8-24); Bun/Creatinine Ratio 27.5 (12.0-20.0); CO2, Blood 30 mmol/L (21-32); Calcium, Blood 8.4 mg/dL (8.5-10.1); Chloride, Blood 102 mmol/L (98-108); Globulin, Blood 3.8 g/dL (2.2-4.0); Glomerular Filtration Rate 74 (60-); Glucose, Blood 99 mg/dL (70-99); Sodium, Blood 135 mmol/L (136-145); Total Protein, Blood 6.8 g/dL (6.4-8.2)
--- NOTE | 2022-07-24 05:59 | NUR ---
A/OX1-2; SELF (PLACE INTERMITTENTLY). IRRITABLE; STATES "IF YOU DON'T GO AWAY, I WILL HIT YOU" DENIES PAIN AT THIS TIME. TELE: SR Q2 TURN; BLANCHABLE REDNESS TO ELBOWS, BLANCHABLE REDNESS TO HEELS (FLOATED ON PILLOWS). DAUGHTER UPDATED ON THE PHONE. SLEEP PROMOTED. CALL LIGHT IN REACH; ENCOURAGED TO MAKE NEEDS KNOWN. BED ALARM SET.
[2022-07-24 07:37] VITALS: BP 138/59
[2022-07-24 15:18] VITALS: BP 138/58
--- NOTE | 2022-07-24 19:53 | NUR ---
SHIFT SUMMARY: PT A/O TO SELF, BEDREST, PLEASANT AND COOPERATIVE WITH CARE. PT WAS VERY LETHARGIC THIS MORNING, ONLY AWAKENING WITH VERBAL STIMULI LONG ENOUGH TO ANSWER YES/NO QUESTIONS AND THEN WOULD FALL ASLEEP. THROUGHOUT THE DAY SHE HAS BECOME MORE ALERT AND AWAKE AND CARRYING ON CONVERSATIONS AT END OF SHIFT. OXYCONTIN HELD THROUGHOUT THE DAY. PT ONLY REPORTED PAIN WHEN HER RASH AREAS IN GROIN AND COCCYX WERE CLEANSED. PT ALSO HAS YEAST RASH UNDER BOTH BREASTS. PHOTOS OF WOUNDS IN CHART. PT WAS UNABLE TO COMPLETE MRI DUE TO HER UNABLE TO STAY STILL DURING EXAM. SHE WAS YELLING AND WOULD NOT FOLLOW DIRECTIONS DURING EXAM. PT HAD NO SIGNS OF SEIZURE ACTIVITY. PT CONTINUED TO HAVE NS RUNNING AT 75 ML/HR. TOLERATING WELL. PT HAD MINIMAL WET ATTENDS AND WAS TEA COLORED. BLADDER SCAN AT 1530 REVEALED 120 MLS. FAMILY IN WITH PT TODAY.
[2022-07-24 20:09] VITALS: BP 164/78
[2022-07-25] VITALS (8 sets, daily range): BP systolic 114–170; BP diastolic 47–92
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
--- NOTE | 2022-07-25 12:45 | NUR ---
Initial palliative care consult: Sosa is an 81 year old with a history of dementia, recent UTI, DM, NY a-fib and Parkinson's disease. She was admitted on 07/24/22 for a seizure that she had at home. She lives at [facility]. CM requested at [facility] meeting this morning to see if pt may benefit from hospice services. Chart reviewed. Call [facility] and spoke with nursing for pt's baseline function. [facility] staff report pt needs assistance with sitting up for meals, transfers, bathing and dressing. She is able to feed herself once she is set up. She is incontinent of bowel and bladder. [facility] staff report her weight has been stable, however they have noticed a decline in her function over the past several months. She gets frustrated at times and yells out. She has a cat who is a big part of her life. [facility] and Ara Kim's office (her PCP) both do not have an AD or POLST on file. Current weight= 66 kg Weight in 01/2022 was 68.04 kg. PPS = 40% KPS = 40% FAST = 6E albumin 3.0 She does not appear to meet hospice criteria for dementia at this time. MD and CM notified. Dr. Bruno spoke with patient's dtr. No source for pt's seizures found at this time. Dr. Bruno reports pt's dtr expressed concern about her decreased PO intake and nausea to him. Plna at this time to keep pt another night and see how she does. Will reach out to pt's dtr tomorrow with an update and to talk about a code status. Dr. Bruno requested that code status discussion be held off until tomorrow. Bedside nursing updated. PC to follow up with pt and her dtr tomorrow for advanced care planning. Pt remains a full code at this time.
[2022-07-25] MEDS ORDERED: LEVE500 PO (16:10)
--- NOTE | 2022-07-25 17:43 | NUR ---
SHIFT SUMMARY: PT A&O TO SELF AND FAMILY. PT HAS BEEN VERY PLEASANT AND COOPERATIVE THIS SHIFT. MRI WAS NOT REPEATED THIS SHIFT. PT UNABLE TO SIT STILL DURING LAST ATTEMPT. PT TO D/C BACK TO [facility] THIS SHIFT BUT UNABLE TO DUE TO NAUSEA/VOMITING. ZOFRAN SWITCHED TO IV WITH ONE DOSE GIVEN. PT STATES SHE FEELS MUCH BETTER. NEW ORDER OF REGLAN GIVEN PRIOR TO DINNER. PT STATES SHE WILL ATTEMPT TO EAT DINNER. PLAN FOR PT TO D/C TOMORROW. PT ON TELE RUNNING NSR. NYSTATIN CREAM APPLIED TO R. GROIN AND UNDER BREASTS. IV KEPPRA GIVEN THIS AM AND SWITCHED TO PO STARTING TONIGHT. CALL LIGHT IN REACH. BED IN LOWEST POSITION. WILL CONTINUE TO MONITOR.
--- NOTE | 2022-07-25 20:42 | NUR ---
HIDE DROPPER NOTIFIED THIS TOBACCO FLAVORER THAT PATIENTS HR WAS UP IN THE 150'S. CHECKED ON PATIENT WHO WAS VISUALIZED HAVING ACTIVE SEIZURE ATIVITY. ETIMATED SEIZURE TIME WAS 1.5 MIN, AND PATIENT RETUNED TO BASELIINE. VS TAKE, PROVIDER CALLED, ATIVAN ORDERED AND ADMINISTERED. WILL CONT TO MONITOR.
[2022-07-26 02:24] VITALS: BP 145/64
[2022-07-26 07:28] VITALS: BP 138/60
[2022-07-26 15:03] VITALS: BP 131/60
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
[2022-07-26 19:42] VITALS: BP 145/76
--- NOTE | 2022-07-27 04:58 | NUR ---
PATIENT IS VERY PLEASANT, SLEPT ON AND OFF, ORIENTED TO SELF AND FAMILY, ALTHOUGH SHE DID UNDERSTAND SHE WAS HERE FOR NEW ONSET SEIZURE ACTIVITY. NO SEIZURES THIS SHIFT. BEDREST TO CONTINUE, MILD TREMORS, HANDS AND FEET CONTRACTURES, BRUISING TO R SIDE TEMORAL AREA, ARMS, KNEES, ANKLES, AND R HIP IN DIFFERENT STAGES OF HEALING. Q2 TURNS PATIENT CANNOT SHIFT WEIGHT HERSELF. MEP ON COCCYX CDI. TAKES MEDS WHOLE WITH SAUCE. NEEDS ENCOURAGEMENT FOR ORAL INTAKE. PRUNE JUICE AND BC ORDERED, NO BM SINCE ADMISSION, AND BS IN ALL FOUR. WILL CONT TO MONITOR.
[2022-07-27 05:36] VITALS: BP 121/59
[2022-07-27 08:18] VITALS: BP 173/62
[2022-07-27 08:45] LABS: Albumin, Blood 2.8 g/dL (3.4-5.0); Albumin/Globulin Ratio 0.8 (0.8-1.8); Bilirubin, Total 0.3 mg/dL (0.1-1.0); Bun/Creatinine Ratio 16.5 (12.0-20.0); Calcium, Blood 8.1 mg/dL (8.5-10.1); Creatinine, Blood 0.67 mg/dL (0.40-1.00); Globulin, Blood 3.5 g/dL (2.2-4.0); Potassium, Blood 3.2 mmol/L (3.5-5.5); Total Protein, Blood 6.3 g/dL (6.4-8.2)
[2022-07-27 10:23] VITALS: BP 148/60
[2022-07-27] MEDS ORDERED: METO5A PO (10:53)
--- NOTE | 2022-07-27 12:56 | NUR ---
MADAY FRITZ CALLED. STATES FROM [facility]. [phone]. QUESTIONS ON DOSING ON SR 100 MG BUPROPION, STATES IS NOT AVAIL ON 75 MG. ONLY 100MG. SPOKE TO ELFEGO PRITCHETT 100 MG SR. ALSO [address] LUONG, D/C 500 MG. KEEP 750 MG BID. DONE. CALLED MADAY FRITZ BACK WITH UPDATED INFO
--- NOTE | 2022-07-27 15:31 | NUR ---
DISCHARGED TO SNF. IV PULLED INTACT BY AIDE. TELE REMOVED BY AIDE. PT WHEELED TO DOOR BY TRANSPORT. 1510.
== END 2022-07-27 15:10 | disposition home or self-care (01) | DRG 101 ==
LOC: ER 18:02 → MEDS 18:03 → ENPENDDIS 07-25 11:57 → MEDS 07-27 15:10
PROVIDERS: Emergency Medicine; Family Medicine; Hospitalist; ADMIT Internal Medicine
DX: R56.9 Unspecified convulsions (principal); E87.1 Hypo-osmolality and hyponatremia; G20 Parkinson's disease; E11.9 Type 2 diabetes mellitus without complications; I48.91 Unspecified atrial fibrillation; Z51.5 Encounter for palliative care; I10 Essential (primary) hypertension; F02.80 Dementia in other diseases classified elsewhere, unspecified severity, without behavioral disturbance, psychotic disturbance, mood disturbance, and anxiety; E03.9 Hypothyroidism, unspecified; E87.6 Hypokalemia; D64.9 Anemia, unspecified; R13.10 Dysphagia, unspecified; D72.829 Elevated white blood cell count, unspecified; Z87.891 Personal history of nicotine dependence; Z87.440 Personal history of urinary (tract) infections; Z88.0 Allergy status to penicillin; Z88.2 Allergy status to sulfonamides; I25.2 Old myocardial infarction; Z79.82 Long term (current) use of aspirin; Z79.2 Long term (current) use of antibiotics; Z79.899 Other long term (current) drug therapy; Z79.02 Long term (current) use of antithrombotics/antiplatelets; Z79.891 Long term (current) use of opiate analgesic; Z90.49 Acquired absence of other specified parts of digestive tract; Z98.890 Other specified postprocedural states; Z79.01 Long term (current) use of anticoagulants
CPT/HCPCS: 36415; 70450; 71045; 71250; 74150; 80053; 81001; 82947; 83690; 83735; 84132; 84443; 85025; 87086; 92526; 92610; 93005; 93010; 96365; 96372; 96376; 99285-25; A9270; G0378; J1650; J1953; J2060; J2405; J3480; J7030

== ENCOUNTER 2022-08-01 08:30 | Emergency (ER) | payer MEDICARE, OTHER ==
[~2022-08-01] VITALS: Ht 160 cm; Wt 72.6 kg
[~2022-08-01 08:30] MED LIST changes: +CALCIUM CARBON500 M1 PO; +CARBIDOPA-LEVO1 EAC9 PO; +CARBLEV250; +LEVE500 PO; +METO5A PO
[2022-08-01 10:08] LABS: Bun/Creatinine Ratio 21.6 (12.0-20.0); Calcium, Blood 8.1 mg/dL (8.5-10.1); Creatinine, Blood 0.88 mg/dL (0.40-1.00); Potassium, Blood 4.2 mmol/L (3.5-5.5)
[2022-08-01 11:31] VITALS: BP 118/61
== END 2022-08-01 11:33 | disposition home or self-care (01) ==
LOC: ER 08:30
PROVIDERS: Student in an Organized Health Care Education/Training Program
DX: R56.9 Unspecified convulsions (principal); E11.9 Type 2 diabetes mellitus without complications; I25.2 Old myocardial infarction; I48.91 Unspecified atrial fibrillation; G20 Parkinson's disease; F02.80 Dementia in other diseases classified elsewhere, unspecified severity, without behavioral disturbance, psychotic disturbance, mood disturbance, and anxiety; Z88.0 Allergy status to penicillin; Z88.2 Allergy status to sulfonamides; Z79.899 Other long term (current) drug therapy; Z79.82 Long term (current) use of aspirin; Z79.02 Long term (current) use of antithrombotics/antiplatelets
CPT/HCPCS: 36415; 80048; 93005; 93010; 99284-25; J7030

== ENCOUNTER 2022-08-07 13:00 | Emergency (ER) | payer MEDICARE, OTHER ==
[~2022-08-07] VITALS: Ht 160 cm; Wt 56.7 kg
[~2022-08-07 13:00] MED LIST changes: -CARBLEV250; +Keppra750 MG PO; -LEVE500 PO
[2022-08-07 14:35] LABS: Hematocrit 35.8 % (33.0-51.0); Hemoglobin 11.5 g/dL (11.5-16.0); Mean Corpuscular HGB 25.8 pg (26.0-34.0); Mean Corpuscular HGB Conc 32.1 g/dL (31.5-36.5); Mean Corpuscular Volume 80 fL (80-100); Mean Platelet Volume 10.3 fL (9.1-12.4); Platelet Count 306 K/mm3 (150-400); RDW Coefficient Variation 14.4 % (11.7-14.2); RDW Standard Deviation 41.1 fL (35.1-46.3); Red Blood Cell Count 4.46 M/mm3 (3.80-5.20); White Blood Cell Count 6.62 K/mm3 (4.00-11.30)
[2022-08-07 14:55] LABS: BASOPHILS PERCENT MAN 0 % (0-2); EOSINOPHILS PERCENT MAN 0 % (0-6); LYMPHOCYTES ABSOLUTE MAN 1.32 K/mm3 (0.84-5.20); LYMPHOCYTES PERCENT MAN 20 % (21-46); MONOCYTES ABSOLUTE MAN 0.26 K/mm3 (0.16-1.47); MONOCYTES PERCENT MAN 4 % (4-13); NEUTROPHILS ABSOLUTE MAN 5.03 K/mm3 (1.96-9.15); SEG NEUTROPHILS PERCENT MAN 76 % (41-73); TOTAL CELLS COUNTED 100
[2022-08-07 15:01] LABS: Magnesium, Blood 1.9 mg/dL (1.6-2.4)
[2022-08-07 15:04] LABS: Alanine Aminotransfer (ALT/SGP <6 U/L (12-78); Albumin/Globulin Ratio 0.8 (0.8-1.8); Alk Phos 142 U/L (50-136); Anion Gap 8 mmol/L (6-16); Aspartate Aminotrans (AST/SGOT 5 U/L (12-37); Bilirubin, Total 0.5 mg/dL (0.1-1.0); Blood Urea Nitrogen 14 mg/dL (8-24); Bun/Creatinine Ratio 20.4 (12.0-20.0); CO2, Blood 27 mmol/L (21-32); Calcium, Blood 8.9 mg/dL (8.5-10.1); Chloride, Blood 104 mmol/L (98-108); Creatinine, Blood 0.69 mg/dL (0.40-1.00); Globulin, Blood 3.8 g/dL (2.2-4.0); Glomerular Filtration Rate 88 (60-); Glucose, Blood 175 mg/dL (70-99); Potassium, Blood 3.8 mmol/L (3.5-5.5); Sodium, Blood 139 mmol/L (136-145); Total Protein, Blood 6.8 g/dL (6.4-8.2)
[2022-08-07 18:30] VITALS: BP 160/78
== END 2022-08-07 19:36 | disposition home or self-care (01) ==
LOC: ER 13:00
PROVIDERS: Emergency Medicine
DX: G40.909 Epilepsy, unspecified, not intractable, without status epilepticus (principal); I25.2 Old myocardial infarction; G20 Parkinson's disease; F03.90 Unspecified dementia, unspecified severity, without behavioral disturbance, psychotic disturbance, mood disturbance, and anxiety; Z88.0 Allergy status to penicillin; Z88.2 Allergy status to sulfonamides; Z79.82 Long term (current) use of aspirin; Z79.02 Long term (current) use of antithrombotics/antiplatelets; Z79.899 Other long term (current) drug therapy; Z87.891 Personal history of nicotine dependence
CPT/HCPCS: 36415; 80053; 83735; 85025; 96365; 99283-25; J1953

== ENCOUNTER 2022-08-11 13:20 | Inpatient (IN) | payer MEDICARE, OTHER ==
[~2022-08-11] VITALS: Ht 165.1 cm; Wt 61.2 kg
[2022-08-11] MEDS ORDERED: CYCL10 PO (13:53)
[2022-08-11 14:18] LABS: Source, Urine Straight Cath
[2022-08-11 14:19] LABS: Appearance, Urine Clear (Clear); Blood, Urine 4+ (Neg); Color, Urine Yellow (P-Yellow); Glucose Qualitative, Urine Neg (Neg); Ketones, Urine 2+ (Neg); Leukocyte Esterase, Urine 2+ (Neg); Nitrite, Urine Neg (Neg); Protein, Urine 3+ (Neg); Specific Gravity, Urine 1.025 (1.003-1.022); Urobilinogen, Urine 2+ (Normal)
[2022-08-11 14:29] LABS: Bilirubin, Urine 1+ (Neg)
[2022-08-11 14:30] LABS: Bacteria Many /hpf; Squamous Epithelial Cells Mod /hpf (Few)
[2022-08-11 14:31] LABS: Granular Casts 0-2 /lpf (0); Transitional Epithelial Cells Rare /hpf (0-Rare)
[2022-08-11 15:11] LABS: Albumin, Blood 2.8 g/dL (3.4-5.0); Albumin/Globulin Ratio 0.8 (0.8-1.8); Bilirubin, Total 0.8 mg/dL (0.1-1.0); Bun/Creatinine Ratio 27.1 (12.0-20.0); Calcium, Blood 8.4 mg/dL (8.5-10.1); Creatinine, Blood 0.78 mg/dL (0.40-1.00); Globulin, Blood 3.7 g/dL (2.2-4.0); Magnesium, Blood 1.6 mg/dL (1.6-2.4); Potassium, Blood 3.7 mmol/L (3.5-5.5); Total Protein, Blood 6.5 g/dL (6.4-8.2)
[2022-08-11 19:46] LABS: BASOPHILS ABSOLUTE AUTO 0.02 K/mm3 (0.00-0.23); BASOPHILS PERCENT AUTO 0 % (0-2); EOSINOPHILS ABSOLUTE AUTO 0.02 K/mm3 (0.00-0.68); EOSINOPHILS PERCENT AUTO 0 % (0-6); Hematocrit 31.8 % (33.0-51.0); Hemoglobin 10.3 g/dL (11.5-16.0); IMMATURE GRAN ABSOLUTE AUTO 0.07 K/mm3 (0.00-0.10); IMMATURE GRAN PERCENT AUTO 1 % (0-1); LYMPHOCYTES ABSOLUTE AUTO 1.67 K/mm3 (0.84-5.20); LYMPHOCYTES PERCENT AUTO 17 % (21-46); MONOCYTES ABSOLUTE AUTO 0.47 K/mm3 (0.16-1.47); MONOCYTES PERCENT AUTO 5 % (4-13); Mean Corpuscular HGB 25.7 pg (26.0-34.0); Mean Corpuscular HGB Conc 32.4 g/dL (31.5-36.5); Mean Corpuscular Volume 79 fL (80-100); NEUTROPHILS ABSOLUTE AUTO 7.52 K/mm3 (1.96-9.15); NEUTROPHILS PERCENT AUTO 77 % (41-73); RDW Coefficient Variation 14.5 % (11.7-14.2); RDW Standard Deviation 41.7 fL (35.1-46.3); Red Blood Cell Count 4.01 M/mm3 (3.80-5.20); White Blood Cell Count 9.77 K/mm3 (4.00-11.30)
[2022-08-11 20:02] LABS: Mean Platelet Volume 10.5 fL (9.1-12.4); Platelet Count 166 K/mm3 (150-400)
[2022-08-11 21:30] VITALS: BP 170/63
[2022-08-11] MEDS ORDERED: QUET25 PO (23:48)
[2022-08-12] VITALS (7 sets, daily range): BP systolic 113–179; BP diastolic 46–64
[2022-08-12 05:15] LABS: BASOPHILS ABSOLUTE AUTO 0.02 K/mm3 (0.00-0.23); BASOPHILS PERCENT AUTO 0 % (0-2); EOSINOPHILS ABSOLUTE AUTO 0.01 K/mm3 (0.00-0.68); EOSINOPHILS PERCENT AUTO 0 % (0-6); Hematocrit 33.7 % (33.0-51.0); Hemoglobin 10.9 g/dL (11.5-16.0); IMMATURE GRAN ABSOLUTE AUTO 0.06 K/mm3 (0.00-0.10); IMMATURE GRAN PERCENT AUTO 1 % (0-1); LYMPHOCYTES ABSOLUTE AUTO 1.76 K/mm3 (0.84-5.20); LYMPHOCYTES PERCENT AUTO 19 % (21-46); MONOCYTES ABSOLUTE AUTO 0.45 K/mm3 (0.16-1.47); MONOCYTES PERCENT AUTO 5 % (4-13); Mean Corpuscular HGB Conc 32.3 g/dL (31.5-36.5); Mean Corpuscular Volume 80 fL (80-100); NEUTROPHILS ABSOLUTE AUTO 7.06 K/mm3 (1.96-9.15); NEUTROPHILS PERCENT AUTO 76 % (41-73); Platelet Count 209 K/mm3 (150-400); RDW Coefficient Variation 14.6 % (11.7-14.2); RDW Standard Deviation 42.4 fL (35.1-46.3); Red Blood Cell Count 4.19 M/mm3 (3.80-5.20); White Blood Cell Count 9.36 K/mm3 (4.00-11.30)
[2022-08-12 05:34] LABS: Albumin, Blood 2.7 g/dL (3.4-5.0); Albumin/Globulin Ratio 0.8 (0.8-1.8); Bilirubin, Total 0.6 mg/dL (0.1-1.0); Bun/Creatinine Ratio 27.6 (12.0-20.0); Calcium, Blood 8.4 mg/dL (8.5-10.1); Creatinine, Blood 0.69 mg/dL (0.40-1.00); Globulin, Blood 3.5 g/dL (2.2-4.0); Potassium, Blood 3.3 mmol/L (3.5-5.5); Total Protein, Blood 6.2 g/dL (6.4-8.2)
--- NOTE | 2022-08-12 05:53 | NUR ---
PT IS A&0 2, VERY SLOW TO SPEAK, PT HAD SEIZURE ACTIVITY UPON ARRIVAL TO THE UNIT, PROVIDER NOTIFIED, PT IS VERY WEAK ON BEDREST, PRN PAIN MEDICATION GIVEN PER MAR, CONTINUE POC
--- NOTE | 2022-08-12 17:51 | NUR ---
PATIENT IS ALERT AND ORIENTED TO SELF AND FOLLOWING DIRECTIONS. PATIENT STARTED THE DAY BEING PRETTY GROGGY AND UNABLE TO WAKE UP OR FOLLOW DIRECTIONS. THROUGHOUT THE DAY SHE HAS BECOME MORE ALERT. ST WORKED WITH THE PATIENT AND PLACED HER ON A PUREE DIET. PATIENT HAS BEEN ABLE TO TAKE MEDICATIONS CRUSHED IN APPLESAUCE. THE PATIENTS DAUGHTER WAS AT THE BEDSIDE THIS AFTERNOON. PATIENT IS INCONTINENT OF BLADDER, ATTENDS IN PLACE. WILL CONTINUE TO MONITOR
--- NOTE | 2022-08-12 18:35 | NUR ---
PATIENT STARTED HAVING A SEIZURE AT 1829 AND IT ENDED AT 1834. 2MG IV ATIVAN ADMINISTERED. RN, TRANSMITTER ENGINEER AND DAUGHTER AT THE BEDSIDE. PATIENT CLENCHED HER HANDS AND ARMS AND HER PUPILS TWITCHED DURING THE SEIZURE. CLERK NOTIFIED
--- NOTE | 2022-08-13 05:18 | NUR ---
PT IS A&O1-2, BEDREST, RA, NO SEIZURE ACTIVITY THIS SHIFT, PRN PAIN MEDICATION GIVEN PER JUN FOR 10/21 BACK PAIN, PT MORE ALERT AND COMMUNICATIVE THIS SHIFT, CONTINUE POC
[2022-08-13 05:35] LABS: Albumin, Blood 2.5 g/dL (3.4-5.0); Anion Gap 4 mmol/L (6-16); Blood Urea Nitrogen 24 mg/dL (8-24); Bun/Creatinine Ratio 25.8 (12.0-20.0); CO2, Blood 26 mmol/L (21-32); Calcium, Blood 8.1 mg/dL (8.5-10.1); Chloride, Blood 107 mmol/L (98-108); Creatinine, Blood 0.93 mg/dL (0.40-1.00); Glomerular Filtration Rate 62 (60-); Glucose, Blood 104 mg/dL (70-99); Magnesium, Blood 2.2 mg/dL (1.6-2.4); Phosphorus, Blood 2.1 mg/dL (2.5-4.9); Potassium, Blood 3.3 mmol/L (3.5-5.5); Sodium, Blood 137 mmol/L (136-145)
[2022-08-13 08:37] VITALS: BP 129/56
[2022-08-13 15:19] VITALS: BP 112/42
[2022-08-13 16:59] VITALS: BP 132/63
--- NOTE | 2022-08-13 17:53 | NUR ---
PATIENT IS ALERT AND ORIENTED TO SELF AND FOLLOWING DIRECTIONS. PATIENT IS AWARE THAT SHE HAS BEEN HALLUCINATING THIS AFTERNOON. PATIENT HAD AN EEG THIS AFTERNOON. NO SEIZURES THIS SHIFT. PATIENT HAS BEEN MORE AWAKE THIS SHIFT. SHE HAS BEEN FEEDING HERSELF. PATIENT WORKED WITH OT AND TRANSFERRED TO THE BSC AND CHAIR. THE PATIENT'S DAUGHTER JAG WAS UPDATED BY THE PHONE. WILL CONTINUE TO MONITOR
[2022-08-13 19:52] VITALS: BP 129/46
[2022-08-14 05:41] LABS: Albumin, Blood 2.4 g/dL (3.4-5.0); Anion Gap 3 mmol/L (6-16); Blood Urea Nitrogen 19 mg/dL (8-24); CO2, Blood 26 mmol/L (21-32); Calcium, Blood 7.8 mg/dL (8.5-10.1); Chloride, Blood 105 mmol/L (98-108); Creatinine, Blood 0.87 mg/dL (0.40-1.00); Glomerular Filtration Rate 67 (60-); Glucose, Blood 105 mg/dL (70-99); Magnesium, Blood 1.8 mg/dL (1.6-2.4); Phosphorus, Blood 1.5 mg/dL (2.5-4.9); Sodium, Blood 134 mmol/L (136-145)
--- NOTE | 2022-08-14 06:36 | NUR ---
PT IS A&O2-3, BEDREST, RA, VSS, PRN PAIN MEDICATION GIVEN PER MAR, PT IS MUCH MORE ALERT THIS SHIFT ABLE TO MAKE NEEDS KNOWN, NO ACUTE OVERNIGHT EVENTS CONTINUE POC
[2022-08-14 08:21] VITALS: BP 142/62
[2022-08-14] MEDS ORDERED: VISBIOME 112.51 EACH PO (11:13)
[2022-08-14] MEDS ORDERED: CEPH500 PO (11:14)
--- NOTE | 2022-08-14 14:03 | NUR ---
PT HAD A 2 MINUTE SEIZURE AT 1145. RN HAD ALREADY REMOVED PT'S IV DUE TO PT'S DISCHARGE ORDER. AFTER IV WAS REPLACED, ATIVAN WAS GIVEN. MINUTES AFTER PT HAD HER FIRST IV PT HAD ANOTHER 1 MINUTE SEIZURE. ATIVAN WAS GIVEN ONLY ONCE DURING PT'S SECOND SEIZURE. PT RESPONDED IMMEDIATELY TO THE 4MG ATIVAN. DR. HERNANDEZ CALLED BY CHARGE AND INFORMED. PT'S DAUGHTER CALLED, BUT NO ANSWER-COULD NOT LEAVE VOICEMAIL DUE TO "FULL INBOX." DC CANCELED AND TRANSPORT/LEONILA HIRSCH NOTIFIED. PT KEPT SAFE DURING SEIZURE ACTIVITY.
[2022-08-14 15:23] VITALS: BP 128/51
--- NOTE | 2022-08-14 18:39 | NUR ---
SUMMARY- PT HAS BEEN SLEEPING POST SEIZURES AND ATIVAN ADMINISTRATION THIS AFTER NOON. DAUGHTER HAS BEEN UPDATED. NO MORE SEIZURES TONIGHT THIS SHIFT.
[2022-08-14 21:45] VITALS: BP 108/55
--- NOTE | 2022-08-15 04:02 | NUR ---
SHIFT SUMMARY PT HAS BEEN SLEEPING SINCE THE START OF THE SHIFT. SHE HAS ONLY SHIFTED WHEN STARTING IV MEDICATIONS BUT RESUMED SLEEPING. PT TOO OBTUNDED TO PROVIDE ORAL MEDICATIONS THIS EVENING. CHECKED ON THE PT OFTEN AND OBSERVED EQUAL CHEST RISE AND FALL. NO SEIZURES THIS SHIFT. WILL REPORT TO ONCOMING NURSE.
[2022-08-15 06:01] LABS: Albumin, Blood 2.4 g/dL (3.4-5.0); Anion Gap 2 mmol/L (6-16); Blood Urea Nitrogen 13 mg/dL (8-24); Bun/Creatinine Ratio 19.6 (12.0-20.0); CO2, Blood 26 mmol/L (21-32); Calcium, Blood 7.5 mg/dL (8.5-10.1); Chloride, Blood 107 mmol/L (98-108); Creatinine, Blood 0.66 mg/dL (0.40-1.00); Glomerular Filtration Rate 89 (60-); Glucose, Blood 89 mg/dL (70-99); Magnesium, Blood 1.9 mg/dL (1.6-2.4); Phosphorus, Blood 3.5 mg/dL (2.5-4.9); Potassium, Blood 3.9 mmol/L (3.5-5.5); Sodium, Blood 135 mmol/L (136-145)
[2022-08-15 06:07] VITALS: BP 159/70
[2022-08-15 07:57] VITALS: BP 102/53
--- NOTE | 2022-08-15 10:11 | NUR ---
seizure @ 0730 During morning bedsdie report. Pt found shaking, she was able to talk. Her eyes were up gazed and to the right. Medciated with Ativan 2mg iv x1. Dr Longoria called. Seizure like activity stopped with Ativan 2mg. Order for head MRI obtained. Pt needs power glide prior. Request forwarded to charge nurse-Keerthi SARGENT. Dr Longoria asked to premedicate pt with Ativan 2mg x1 prior to MRI. Continue POC.
--- NOTE | 2022-08-15 10:52 | NUR ---
Spiritual Care Visit. Pt. is displays evidence of being obtunded and is non repsonsive. Pts. nurse welcomed prayer over the the Pt. Prayed over Pt. Pts. chart identifies her as a Adventist so spiritual care will remain available to Pt. and family.
[2022-08-15 15:40] VITALS: BP 159/72
--- NOTE | 2022-08-15 18:18 | NUR ---
SHIFT SUMMARY PATIENT GROGGY POST SEIZURE THIS AM AND SLEEPING. GIVEN 1MG ATIVAN BEFORE MRI. MRI COMPLETED, NO ACUTE PROCESS NOTED. PATIENT ALERT AND RESPONSIVE THIS AFTERNOON. SPEECH THERAPY ASSESSED PATIENT. PATIENT RETURNED TO PUREE DIET. APPETITE IMPROVED. NO NAUSEA REPORTED THIS SHIFT. PG PLACED. PATIENT PLEASANT AND COOPERATIVE WITH CARE.
[2022-08-15 20:54] VITALS: BP 138/77
--- NOTE | 2022-08-16 04:13 | NUR ---
SHIFT SUMMARY PT AOX1, BEDREST. SHE HAS BEEN TALKATIVE THIS SHIFT BUT STILL CONFUSED WHEN ANSWERING QUESTIONS AT TIMES. SHE IS EAGER TO GO HOME. SHE HAS SLEPT THROUGHOUT THE NIGHT, WAKING UP WHEN MEDICATIONS WERE ADMINISTERED AND FOR BRIEF CHANGES. NO SEIZURE ACTIVITY THIS SHIFT. WILL REPORT TO ONCOMING NURSE.
[2022-08-16 07:46] VITALS: BP 131/53
[2022-08-16] MEDS ORDERED: B-1100 M1 PO (12:24)
[2022-08-16] MEDS ORDERED: LORA2L PO (12:25)
--- NOTE | 2022-08-16 13:15 | NUR ---
DISCHARGE SUMMARY PT ALERT, PLEASANT & COOPERATIVE WITH CARE. DORIAN PO MECH SOFT/DYSPHAGIA PREC, ORAL CARE/SHAMPOO MASK/HAIR COMBED, VOID/ATTENDS ON/BM TODAY, STAND PIVOT 2 PP MAX ASSIST TO WC W/FWW & GB. LEFT FLOOR VIA WC WITH TRANSPORT TO GO HOME WITH ALL PERSONAL POSSESSIONS INCLUDING RING ON HER FINGER AND DC PACKET. IVS AND PWRGLIDE DC'D, WNL.
--- NOTE | 2022-08-16 14:18 | NUR ---
pt up in chair confused but very pleasant. Anxious to go home and return to her cat. Review of labs, pt history and freqent outp patient and ER visits. Pt having more seizure activity. Reported by family and [facility] staff less po intake She is now unable to bear weight or transfer. She is having worsing speech and confussion at time. Pt at risk for great suffering and airway compromise. Her kps is 40% her readmission risk or sudden demise from airway stress is high. Hospice is incicated. Called pt daughter Mag gOden. Review of mother needs and daily life. pt daughter is very concerned that she is getting worse. She has a cat at her facility that she is with most of the time and gives her great comfort. We dicscussed prognosis and the possiblity of worsening seizures and neurolgicial fuction and suffering. Daughter thinks hospice and keeping her in her facilitywith her cat is a great idea. We disscussed the support and reassured her that she can have a consult and accept or deny or if anything changes she can return her to full treatment if needs. This gave her great comfort in her decision. pt jhony did not have a preferance for a [facility]. Offered to speak with the facility to see who they woudl like to work with . At this tiem they would chose [id number]. Notified physician [facility].
== END 2022-08-16 13:30 | disposition hospice, inpatient (51) | DRG 100 ==
LOC: ER 13:20 → MEDS 13:21 → ENPENDDIS 08-14 10:46 → MEDS 08-16 13:30
PROVIDERS: Internal Medicine; Student in an Organized Health Care Education/Training Program; ADMIT Internal Medicine
DX: R56.9 Unspecified convulsions (principal); G93.41 Metabolic encephalopathy; E87.1 Hypo-osmolality and hyponatremia; N39.0 Urinary tract infection, site not specified; F03.90 Unspecified dementia, unspecified severity, without behavioral disturbance, psychotic disturbance, mood disturbance, and anxiety; E11.9 Type 2 diabetes mellitus without complications; Z51.5 Encounter for palliative care; R13.10 Dysphagia, unspecified; I10 Essential (primary) hypertension; E83.39 Other disorders of phosphorus metabolism; E03.9 Hypothyroidism, unspecified; I48.91 Unspecified atrial fibrillation; F32.A Depression, unspecified; M19.90 Unspecified osteoarthritis, unspecified site; E87.6 Hypokalemia; E83.42 Hypomagnesemia; G20 Parkinson's disease; B96.1 Klebsiella pneumoniae [K. pneumoniae] as the cause of diseases classified elsewhere; Z88.0 Allergy status to penicillin; Z88.2 Allergy status to sulfonamides; Z79.899 Other long term (current) drug therapy; Z79.82 Long term (current) use of aspirin; Z79.01 Long term (current) use of anticoagulants; Z79.02 Long term (current) use of antithrombotics/antiplatelets; Z79.891 Long term (current) use of opiate analgesic; I25.2 Old myocardial infarction; Z90.49 Acquired absence of other specified parts of digestive tract; Z98.890 Other specified postprocedural states; Z87.891 Personal history of nicotine dependence
CPT/HCPCS: 36415; 51701; 70450; 70553; 71045; 80053; 80069; 80177; 81001; 82947; 83735; 85025; 87077; 87086; 87186; 92526; 92610; 93005; 93010; 94760; 95819; 96361-59; 96365-59; 96366; 96367; 96368; 96372; 96375-59; 97162; 97166; 97530; 97535; 99285-25; A9270; A9579; C1751; G0378; J0696; J1650; J1953; J2060; J3475; J3480; J7030; J7050; J7060